=== PATIENT | male | born 1970 | race African-American/Black ===

== ENCOUNTER 2016-08-02 05:04 | Emergency (ER) | payer OTHER ==
[~2016-08-02] VITALS: Ht 193 cm; Wt 159.0 kg
[~2016-08-02 05:04] MED LIST: AMLO5TAB22 PO; LISI-363 PO
[2016-08-02 05:06] VITALS: BP 183/116; PULSE 84; RESP 20; TEMP 97.6; O2SAT 98
[2016-08-02] MEDS ORDERED: PROCHLORPERAZINE INJ 10 MG/2 ML VIAL IVP ONE (05:30)
[2016-08-02] MEDS ORDERED: SODIUM CHLORIDE 0.9% FLUSH 10 ML FLUSH IVF PRN (05:30)
[2016-08-02] MEDS ORDERED: diphenhydrAMINE HCL 50 MG/ML VIAL IVP ONE (05:30)
[2016-08-02 05:44] VITALS: RESP 18
[2016-08-02] MEDS ORDERED: AMLO5TAB2 PO (06:00)
[2016-08-02] MEDS ORDERED: LISI-515 PO (06:00)
--- NOTE | 2016-08-02 06:01 | PD ---
HPI Chief Complaint: Headache Time Seen by Provider: 05:28 Travel History International Travel<30 days: No Contact w/Intl Traveler<30days: No Traveled to known affect area: No History of Present Illness HPI 45-year-old male arrives with headache for about 1 day. Started at rest. Location is frontal. Has a throbbing quality. States that severe. He's had headaches in the past. It feels similar to stop the worst headache of his life. It started gradually. Motrin and ice pack were not very helpful. Photophobia is reported. He has been noncompliant with amlodipine and lisinopril for a few weeks. Nausea is reported. PFSH Past Medical History Heart Rhythm Problems: No Cardiac Catheterization: No Cardiovascular Problems: Yes (HTN) High Cholesterol: No Congestive Heart Failure: No Cerebrovascular Accident: No Diabetes: No Heparin Induced Thrombocytopen: No Hypertension: Yes Immunizations Current: Yes Myocardial Infarction: No Seizures: No Ulcer: No Tetanus Vaccination: Unknown Influenza Vaccination: No Past Surgical History Coronary Artery Bypass Graft: No Family History Family Myocardial Infarction: Yes Social History Alcohol Use: Yes (OCC) Tobacco Use: Yes (Cigars) Substance Use: No Allergies-Medications (Allergen,Severity, Reaction): Coded Allergies: No Known Allergies (Verified , 08/02/16) Reported Meds & Prescriptions Reported Meds & Active Scripts Active Lisinopril 20 Mg Tab 20 Mg PO DAILY Amlodipine (Amlodipine Besylate) 5 Mg Tab 5 Mg PO DAILY Review of Systems Except as stated in HPI: all other systems reviewed are Neg Physical Exam Narrative GENERAL: 67 yo M, WNWD, NAD SKIN: Warm and dry. HEAD: Atraumatic. Normocephalic. EYES: Pupils equal and round. No scleral icterus. No injection or drainage. ENT: No nasal bleeding or discharge. Mucous membranes pink and moist. NECK: Trachea midline. No JVD. Supple normal ROM. CARDIOVASCULAR: Regular rate and rhythm. RESPIRATORY: No accessory muscle use. Clear to auscultation. Breath sounds equal bilaterally. GASTROINTESTINAL: Abdomen soft, non-tender, nondistended. Hepatic and splenic margins not palpable. MUSCULOSKELETAL: Extremities without clubbing, cyanosis, or edema. No obvious deformities. NEUROLOGICAL: Awake and alert. No obvious cranial nerve deficits. Motor grossly within normal limits. Five out of 5 muscle strength in the arms and legs. Normal speech. PSYCHIATRIC: Appropriate mood and affect; insight and judgment normal. Data Data Last Documented VS Vital Signs Date Time Temp Pulse Resp B/P Pulse Ox O2 Delivery O2 Flow Rate FiO2 08/02/16 05:44 18 08/02/16 05:06 97.6 84 183/116 98 VS reviewed Orders Ecg Monitoring (08/02/16 05:28) Iv Access Insert/Monitor (08/02/16 05:28) Oximetry (08/02/16 05:28) Sodium Chloride 0.9% Flush (Ns Flush) (08/02/16 05:30) Prochlorperazine Inj (Compazine Inj) (08/02/16 05:30) Diphenhydramine Inj (Benadryl Inj) (08/02/16 05:30) Hydromorphone Pf Inj (Dilaudid Pf Inj) (08/02/16 06:30) [facility] Medical Decision Making Medical Screen Exam Complete: Yes Emergency Medical Condition: Yes Medical Record Reviewed: Yes Differential Diagnosis migraine, sah, meningitis, aneurysm Narrative Course At 630AM pt resting and feeling better. Reports persistent headache. Nausea resolved. 1mg hydromorphone ordered. The patient is resting comfortably and feels better, is alert and in no distress. The repeat examination is unremarkable and benign. The history, exam, diagnostic testing, and current condition do not suggest any significant pathology to warrant further testing, continued ED treatment, admission, or surgical evaluation at this point. The vital signs have been stable. The patient does not have uncontrollable pain, intractable vomiting, or other significant symptoms. The patient's condition is stable and appropriate for discharge. The patient will pursue further outpatient evaluation with a primary care physician or other designated or consulting physician as indicated in the discharge instructions. The patient expressed understanding and was agreeable with this plan. Diagnosis Primary Impression: Head ache Qualified Code: R51 - Nonintractable headache, unspecified chronicity pattern , unspecified headache type Additional Impression: Hypertension Qualified Code: I10 - Essential hypertension Referrals: [facility] 2 days Additional Instructions: You have a choice when it comes to health care, and we are glad that you chose [facility]. Hopefully, we have met your expectations on today's visit. You are welcome to return to [facility] at any time, as we are committed to meeting the health care needs of our community. Med/Other Pt SpecificInfo: Prescription(s) given Scripts Lisinopril 20 Mg Tab20 Mg PO DAILY #30 TAB Ref 1 Prov:Yordy Mcnally MD 08/02/16 Amlodipine 5 Mg Tab5 Mg PO DAILY #30 TAB Ref 1 Prov:Yordy Mcnally MD 08/02/16 Disposition: 01 DISCHARGE HOME Condition: Stable Yordy Mcnally MD August 02, 2016 06:01
[2016-08-02] MEDS ORDERED: HYDROmorphone HCL PF 1 MG/ML VIAL IV PUSH ONE (06:30)
[2016-08-02 06:55] VITALS: RESP 16
[2016-08-02 06:56] VITALS: BP 169/93
== END 2016-08-02 06:58 | disposition home or self-care (01) ==
LOC: NEPE 05:04
DX: R51 Headache (principal); I10 Essential (primary) hypertension; F17.290 Nicotine dependence, other tobacco product, uncomplicated
CPT/HCPCS: 96374; 96375; 99283; J0780; J1170; J1200

== ENCOUNTER 2017-09-25 01:15 | Inpatient (IN) ==
[2017-09-25] MEDS ORDERED: Morphine Inj 4 MG/ML Vial IV.PUSH ONE (01:49)
--- NOTE | 2017-09-25 02:08 | ED ---
HPI General Chief Complaint: Chest Pain Stated Complaint: Chest Pain Time Seen by Provider: 09/25/17 01:36 Source: patient and family Mode of arrival: ambulatory Limitations: no limitations History of Present Illness HPI narrative: Patient is a 46-year-old male he awoke from sleep severe substernal chest pain stabbing not relieved by any medication took Tums without relief. Pain is a 10 out of 10 he is writhing in pain in the stretcher he is not diaphoretic is not vomiting patient is a large habitus bodied male he was here a year ago similar symptoms says that he had a cath that was negative for any blockages he reports. He has hypertension he is hypertensive at triage 215 systolic blood pressure patient EKG is done he is sinus rhythm [address] elevations or depressions patient pain does not radiate to the arm it does not radiate to the back it is substernal severe stabbing continues in the ER without relief family drove to the ER they did not take EMS patient denies diabetes denies cardiac history but has had a cath for the similar symptoms a year ago Complete Quality Measures for STEMI Alert Patients Related Data Home Medications Medication Instructions Recorded Confirmed lisinopril 20 mg PO DAILY 09/25/17 09/25/17 Allergies Allergy/AdvReac Type Severity Reaction Status Date / Time No Known Allergies Allergy Unverified 09/25/17 01:22 Review of Systems Except as stated in HPI: all other systems reviewed are negative [facility] Medical History Medical History Hypertension (Acute) Social History Social History Substance History: No History of Abuse Second Hand Smoke Exposure: No Smoking Status: Current every day smoker Tobacco Type: Cigars How Often Do You Have a Drink Containing Alcohol: Monthly or less Recent Travel in [facility] within the Last 8 Weeks: No Recent Out of Country Travel within the Last 8 Weeks: No Immunization History Tetanus Immunization: Unsure Hx Influenza Vaccine This Season: No Exam Narrative Exam Narrative: GENERAL: Patient in moderate distress lying on the stretcher slightly arriving holding his chest ] SKIN: Focused skin assessment warm/dry. HEAD: Atraumatic. Normocephalic. EYES: Pupils equal and round. No scleral icterus. No injection or drainage. ENT: No nasal bleeding or discharge. Mucous membranes pink and moist. NECK: Trachea midline. No JVD. CARDIOVASCULAR: Regular rate and rhythm. No murmur appreciated. htn bp 215/ 99 RESPIRATORY: No accessory muscle use. Clear to auscultation. Breath sounds equal bilaterally. GASTROINTESTINAL: Abdomen soft, non-tender, nondistended. Hepatic and splenic margins not palpable. MUSCULOSKELETAL: No obvious deformities. No clubbing. No cyanosis. No edema. NEUROLOGICAL: Awake and alert. No obvious cranial nerve deficits. Motor grossly within normal limits. Normal speech. PSYCHIATRIC: Appropriate mood and affect; insight and judgment normal. Course Reevaluation(s) Reevaluation #1: Patient's mild improvement pain is reduced Nitropaste 1 inch as well as 2 of morphine and 162 of aspirin patient's BP comes down to 151 systolic he is admitted to chest pain center for serial troponins serial EKGs is troponin is negative EKG is normal sinus rhythm at a rate of 65 admitted to the wet wheeler covering the chest pain center still troponins serial EKG stress test in the a.m. Initial Documented Vital Signs Temperature 97.5 F L 09/25/17 01:19 Pulse Rate 72 09/25/17 01:19 Respiratory Rate 16 09/25/17 01:19 Blood Pressure 215/118 H 09/25/17 01:19 Pulse Oximetry 98 09/25/17 01:19 Last Documented Vital Signs Temperature 97.5 F L 09/25/17 01:19 Pulse Rate 65 09/25/17 03:59 Respiratory Rate 16 09/25/17 03:59 Blood Pressure 151/96 H 09/25/17 03:59 Pulse Oximetry 99 09/25/17 04:03 Medical Decision Making Lab Data Result diagrams: 09/25/17 02:00 09/25/17 02:00 Lab Results 09/25/17 09/25/17 09/25/17 Range/Units 02:00 02:00 02:00 WBC 9.4 (4.0-11.0) th/mm3 RBC 5.25 (4.50-5.90) mil/mm3 Hgb 13.3 (13.0-17.0) gm/dL Hct 40.8 (39.0-51.0) % MCV 77.8 L (80.0-100.0) fL MCH 25.3 L (27.0-34.0) pg MCHC 32.5 (32.0-36.0) % RDW 16.1 (11.6-17.2) % Plt Count 218 (150-450) th/mm3 MPV 8.6 (7.0-11.0) fL Neut % (Auto) 50.8 (16.0-70.0) % Lymph % (Auto) 38.4 (9.0-44.0) % [place] % (Auto) 7.6 (0.0-8.0) % Eos % (Auto) 2.9 (0.0-4.0) % Baso % (Auto) 0.3 (0.0-2.0) % Neut # (Auto) 4.8 (1.8-7.7) th/mm3 Lymph # (Auto) 3.6 (1.0-4.8) th/mm3 [place] # (Auto) 0.7 (0.0-0.9) th/mm3 Eos # (Auto) 0.3 (0.0-0.4) th/mm3 Baso # (Auto) 0.0 (0.0-0.2) th/mm3 WBC Differential . Differential Comment Auto diff final PT 10.5 (9.8-11.6) sec INR 1.0 Ratio APTT 27.6 (24.3-30.1) sec Sodium 144 (136-145) meq/L Potassium 3.6 (3.5-5.1) meq/L Chloride 110 H (98-107) meq/L Carbon Dioxide 26.5 (21.0-32.0) meq/L Anion Gap 8 (5-15) meq/L BUN 17 (7-18) mg/dL Creatinine 1.03 (0.60-1.30) mg/dL Estimated GFR Greater than 89 (>89) mL/min Random Glucose 134 H (74-106) mg/dL Calcium 8.5 (8.5-10.1) mg/dL Magnesium 2.1 (1.5-2.5) mg/dL Total Creatine Kinase 534 H (39-308) U/L CK-MB (CK-2) 3.3 (0.5-3.6) ng/mL CK-MB (CK-2) % 0.6 (0.0-4.0) % Troponin I Less than 0.02 L (0.02-0.05) ng/mL Imaging Data Radiologist's impression: ITS Impressions Chest X-Ray 09/25/17 01:49 CONCLUSION: No acute cardiopulmonary disease. ECG Data EKG Prior to Arrival: No Attestation: I personally reviewed and interpreted this ECG as follows: Prior ECG tracings: not available for review Discharge Plan Discharge Disposition Patient Disposition: 30 Still Patient Physicians Team ED Provider: Chinmay Michele Primary Care Provider: Primary Care Luz Maria Dwyer Attending Provider: Thomas Lindo Status ED Status: Admitted Observation Patient
[2017-09-25 02:29] LABS: Baso % (Auto) 0.3 % (0.0-2.0); Eos # (Auto) 0.3 th/mm3 (0.0-0.4); Eos % (Auto) 2.9 % (0.0-4.0); Hematocrit 40.8 % (39.0-51.0); Hemoglobin 13.3 gm/dL (13.0-17.0); Lymph # (Auto) 3.6 th/mm3 (1.0-4.8); Lymph % (Auto) 38.4 % (9.0-44.0); Mean Corpuscular HGB Conc 32.5 % (32.0-36.0); Mean Corpuscular Hemoglobin 25.3 pg (27.0-34.0); Mean Corpuscular Volume 77.8 fL (80.0-100.0); Mean Platelet Volume 8.6 fL (7.0-11.0); Mono # (Auto) 0.7 th/mm3 (0.0-0.9); Mono % (Auto) 7.6 % (0.0-8.0); Neut # (Auto) 4.8 th/mm3 (1.8-7.7); Neut % (Auto) 50.8 % (16.0-70.0); Platelet Count 218 th/mm3 (150-450); Red Blood Count 5.25 mil/mm3 (4.50-5.90); Red Cell Distribution Width 16.1 % (11.6-17.2); White Blood Count 9.4 th/mm3 (4.0-11.0)
--- NOTE | 2017-09-25 02:29 | XR ---
EXAM DATE: 09/25/2017 2:22 AM EDT AGE/SEX: 46 years / Male INDICATIONS: Substernal chest pain. CLINICAL DATA: This is the patient's initial encounter. Patient reports that signs and symptoms have been present for 1 day and indicates a pain score of 6/10. MEDICAL/SURGICAL HISTORY: None. None. COMPARISON: [facility] [place], CHEST SINGLE AP, 06/26/2015. . FINDINGS: PA and lateral views of the chest demonstrate the lungs to be symmetrically aerated without evidence of mass, infiltrate or effusion. The cardiomediastinal contours are unremarkable. Osseous structures are intact. CONCLUSION: No acute cardiopulmonary disease. Electronically signed by: Rai Pereira MD 09/25/2017 2:27 AM EDT
[2017-09-25 02:37] LABS: Activated Partial Thrombo Time 27.6 sec (24.3-30.1); Prothrombin Time 10.5 sec (9.8-11.6)
[2017-09-25 02:44] LABS: Anion Gap 8 meq/L (5-15); Blood Urea Nitrogen 17 mg/dL (7-18); Calcium 8.5 mg/dL (8.5-10.1); Carbon Dioxide 26.5 meq/L (21.0-32.0); Chloride 110 meq/L (98-107); Glomerular Filtration Rate Greater Than 89 mL/min (>89); Glucose,Random 134 mg/dL (74-106); Magnesium 2.1 mg/dL (1.5-2.5); Potassium 3.6 meq/L (3.5-5.1); Sodium 144 meq/L (136-145)
[2017-09-25 02:48] LABS: Creatine Kinase 534 U/L (39-308)
[2017-09-25 03:00] LABS: CKMB Percent 0.6 % (0.0-4.0); Creatine Kinase MB 3.3 ng/mL (0.5-3.6)
[2017-09-25 06:13] LABS: Troponin I 1.8 ng/mL (0.02-0.05)
[2017-09-25] MEDS ORDERED: Heparin 2,000 UNITS/2 ML Vial (for IV use) IV.FLUSH ONE (06:17)
[2017-09-25] MEDS ORDERED: Heparin Drip 25,000 UNIT/250 ML BAG IV.CONT PRN (06:18)
[2017-09-25 06:25] LABS: CKMB Percent 2.4 % (0.0-4.0); Creatine Kinase MB 12.7 ng/mL (0.5-3.6)
[2017-09-25] MEDS ORDERED: Acetaminophen 325 MG Tablet PO PRN (06:48)
[2017-09-25] MEDS ORDERED: Bisacodyl 10 MG Supp RECTAL PRN (06:48)
[2017-09-25] MEDS ORDERED: Temazepam 15 MG Capsule PO PRN (06:48)
[2017-09-25] MEDS ORDERED: Morphine Inj 4 MG/ML Vial IV.PUSH PRN (06:51)
[2017-09-25] MEDS ORDERED: Sod Chloride 0.9% Inj 1,000 ML IV.CONT SCH (07:00)
[2017-09-25] MEDS ORDERED: Heparin 10,000 UNITS/10 ML Vial (for IV use) ONE ×2 (07:24→10:38)
[2017-09-25] MEDS ORDERED: Metoprolol Tartrate 25 MG Tablet PO SCH (09:00)
[2017-09-25] MEDS ORDERED: Senna/Docusate Sodium 8.6/50 MG Tablet PO SCH (09:00)
--- NOTE | 2017-09-25 09:12 | MB ---
cc: Flash Allison MD DATE: 09/25/2017 DATE OF CONSULTATION: 09/25/2017 INDICATION: Non-ST elevation myocardial infarction. HISTORY OF PRESENT ILLNESS: This is a 46-year-old gentleman who has a history of tobacco abuse and hypertension, who presents with acute onset of substernal chest pain. The patient states that last night he awoke with sudden onset of substernal chest pain. He tried antacids without any relief. He described it as a 10/10 pain associated with minimal diaphoresis and shortness of breath. He was brought in to the emergency department where electrocardiogram showed no significant ischemic changes. Symptoms resolved in the ER prior to EKG. His cardiac biomarkers are mildly elevated. We are consulted for further recommendations. PAST MEDICAL HISTORY: Hypertension. SOCIAL HISTORY: He is a current cigar smoker. Occasional alcohol use. FAMILY HISTORY: He denies family history of early coronary disease or sudden cardiac . REVIEW OF SYSTEMS: A 12-point review of system was performed, negative unless otherwise noted in History Of Present Illness. PHYSICAL EXAMINATION: VITAL SIGNS: Temperature 97, pulse 72, blood pressure is 151/96 mmHg. Upon initial arrival was it was 215/118 mmHg. GENERAL: Alert and oriented x3, in no acute distress. HEENT: Shows pupils are reactive to light and accommodation. Extraocular movements are intact. NECK: No elevation of jugular venous distention. No thyromegaly. No lymphadenopathy. No carotid bruits. LUNGS: Clear to auscultation bilaterally. CARDIOVASCULAR: Regular rate and rhythm without murmurs, rubs or gallops. ABDOMEN: Nontender, nondistended, good bowel sounds. No hepatosplenomegaly. EXTREMITIES: No clubbing, cyanosis or edema. Good peripheral pulses. NEUROLOGIC: Cranial nerves intact. Motor and sensory grossly intact. LABORATORY DATA: WBC 9.4, hemoglobin is 13.3, platelet count is 218. Sodium 144, potassium 3.6, BUN 17, creatinine is 1.03. Troponin was initially 0.02 but is now elevated at 1.80. Electrocardiogram shows sinus rhythm, some early repolarization, but no significant ST abnormalities and no nonspecific T-wave abnormalities. Looking back at his EKG from 2016 actually shows T-wave inversions to the anterolateral precordial leads, which are now pseudo-normalized. ASSESSMENT: 1. Non-ST elevation myocardial infarction. 2. Hypertension. PLAN: Given the suggestive symptoms, in addition to elevated cardiac biomarkers and a change in EKG, we will proceed directly with cardiac catheterization. Risks, benefits, and alternatives discussed with the patient. The patient understood and consented to proceed. Echocardiogram has been performed. The patient is on heparin drip. We will continue with guideline-directed medical therapy. Flash Allison MD SAROJ/SB , 08:48 AM , 09:11 AM
--- NOTE | 2017-09-25 10:01 | P.HPIM ---
History of Present Illness Primary Care Physician: No Primary Care Physician Chief Complaint: Chest pain History of Present Illness: 46-year-old -Mac[place] male with history of hypertension presents to emergency room with complaints of substernal chest pain which he rates as a throbbing sharp pain intensity of a 10 out of 10. He states the pain woke him up about midnight with no significant relief therefore came to the emergency room for further evaluation. He reports associated nausea with no radiation. He denies any shortness of breath associated with this pain. At this time, after Nitropaste has been started he is complaining of frontal headaches and requesting pain medication. He states that his chest pain has improved since coming to the emergency room. Inpatient Certification: I certify that the inpatient services were ordered in accordance with Medicare regulations governing the order. This includes certification that hospital inpatient services are reasonable and necessary and in the case of services not specified as inpatient-only under 42 CFR 419.22(n), that they are appropriately provided as inpatient services in accordance to with the 2-midnight benchmark under 43 CFR 412.3(e) Estimated Total Length of Stay (Days): 2 Plans for Post Hospital Care: Home Review of Systems All other systems reviewed negative except as stated in HPI PMFSH - History History Provided By: Patient - Medical / Surgical Hx Neg / Unobtainable Surgical History: No Previous Surgery - Medical History Medical History: Medical History (Last Reviewed 09/25/17 @ 09:55 by Genesis Gill MD) Hypertension - Family History Family History: Family History (Last Updated 09/25/17 @ 09:56 by Genesis Gill MD) Mother Family history of acute myocardial infarction - Tobacco History Second Hand Smoke Exposure: No Tobacco Use In Past 30 Days: Yes Smoking Status: Current every day smoker Tobacco Type: Cigars - Alcohol History How Often Do You Have a Drink Containing Alcohol: Monthly or less - Substance Use History Substance History: No History of Abuse - Travel History Recent Travel in the [place] Within the Last 8 Weeks: No Recent Travel Out of the Country Within the Last 8 Weeks: No - Immunization History Tetanus Immunization: Unsure Hx Influenza Vaccine This Season: No Medications and Allergies Active Medications: Active Medications Acetaminophen (Tylenol) 650 mg PO Q4H PRN PRN Reason: Temp > 100.4 Last Admin: 09/25/17 07:33 Dose: 650 mg Al Hydroxide/Mg Hydroxide (Milk Of Magnesia Liq) 30 ml PO Q12H PRN PRN Reason: Mild Constipation Bisacodyl (Dulcolax Supp) 10 mg RECTAL DAILY PRN PRN Reason: SEVERE CONSITIPATION Heparin Sodium/Dextrose (Heparin/D5w 25,000 U/250 Ml) 25,000 unit in 250 mls @ 0 mls/hr IV.CONT TITRATE PRN; Protocol PRN Reason: Per Protocol Last Admin: 09/25/17 07:34 Dose: 1,000 units/hr, 10 mls/hr Sodium Chloride (Ns Inj) 1,000 mls @ 100 mls/hr IV.CONT .Q10H NAZIA Lactulose (Lactulose Liq) 30 ml PO DAILY PRN PRN Reason: SEVERE CONSITIPATION Metoclopramide HCl (Reglan Inj) 5 mg IV.PUSH Q6HR PRN; Protocol PRN Reason: NAUSEA OR VOMITING Metoprolol Tartrate (Lopressor) 25 mg PO BID NAZIA Morphine Sulfate (Morphine Inj) 2 mg IV.PUSH Q4H PRN PRN Reason: PAIN 6-10 Nitroglycerin (Nitro-Bid 2% Oint) 0.5 inch TOPICAL Q6HR PRN PRN Reason: CHEST PAIN Last Admin: 09/25/17 07:32 Dose: 0.5 inch Pravastatin Sodium (Pravachol) 40 mg PO DAILY [facility] Senna/Docusate Sodium (Malinda-Colace) 1 tab PO BID [facility] Sennosides (Senokot) 17.2 mg PO Q12H PRN PRN Reason: Moderate Constipation Sodium Chloride (Ns Flush) 2 ml IV.FLUSH UNSCH PRN PRN Reason: FLUSH AFTER USING IV ACCESS Sodium Chloride (Ns Flush) 2 ml IV.FLUSH BID NAZIA Sodium Chloride (Ns Flush) 2 ml IV.FLUSH PRN PRN PRN Reason: FLUSH AFTER USING IV ACCESS Temazepam (Restoril) 15 mg PO HS PRN PRN Reason: INSOMNIA Allergies Allergy/AdvReac Type Severity Reaction Status Date / Time No Known Allergies Allergy Unverified 09/25/17 01:22 Home Medications Medication Instructions Recorded Confirmed Type lisinopril 20 mg PO DAILY 09/25/17 09/25/17 History Exam Vital signs: Vital Signs 09/25/17 01:19 09/25/17 02:02 09/25/17 02:04 Temperature 97.5 F L Pulse Rate 72 74 Respiratory Rate 16 Blood Pressure 215/118 H Pulse Oximetry 98 98 09/25/17 02:05 09/25/17 03:59 09/25/17 04:00 Temperature Pulse Rate 65 Respiratory Rate 16 Blood Pressure 151/96 H Pulse Oximetry 95 99 99 09/25/17 04:03 09/25/17 06:45 09/25/17 09:02 Temperature Pulse Rate 64 72 Respiratory Rate 16 18 Blood Pressure 157/90 H 167/88 H Pulse Oximetry 99 100 Intake & Output 09/24/17 09/25/17 09/25/17 18:59 06:59 18:59 Weight 154.221 kg Narrative: GENERAL: Well-nourished well-developed -Macanese male in no acute distress SKIN: Warm and dry. HEAD: Atraumatic. Normocephalic. EYES: Pupils equal and round. No scleral icterus. No injection or drainage. ENT: No nasal bleeding or discharge. Mucous membranes pink and moist. NECK: Trachea midline. No JVD. CARDIOVASCULAR: Regular rate and rhythm. Chest wall: Chest pain not reproducible on palpation of the chest wall RESPIRATORY: No accessory muscle use. Clear to auscultation. Breath sounds equal bilaterally. GASTROINTESTINAL: Abdomen soft, non-tender, nondistended. Hepatic and splenic margins not palpable. Normoactive bowel sounds MUSCULOSKELETAL: Extremities without clubbing, cyanosis, or edema. No obvious deformities. NEUROLOGICAL: Awake and alert to person place time and situation. No obvious cranial nerve deficits. Motor grossly within normal limits. Five out of 5 muscle strength in the arms and legs. Normal speech. PSYCHIATRIC: Appropriate mood and affect; insight and judgment normal. Results - Labs CBC & Chem 7: 09/25/17 02:00 09/25/17 02:00 Labs: Short CBC 09/25/17 Range/Units 02:00 WBC 9.4 (4.0-11.0) th/mm3 Hgb 13.3 (13.0-17.0) gm/dL Hct 40.8 (39.0-51.0) % Plt Count 218 (150-450) th/mm3 BMP 09/25/17 02:00 Sodium 144 Potassium 3.6 Chloride 110 H Carbon Dioxide 26.5 BUN 17 Creatinine 1.03 Calcium 8.5 Cardiac Enzymes 09/25/17 09/25/17 Range/Units 02:00 05:10 Total Creatine Kinase 534 H 521 H (39-308) U/L CK-MB (CK-2) 3.3 12.7 H (0.5-3.6) ng/mL Troponin I Less than 0.02 L 1.80 H* (0.02-0.05) ng/mL - Imaging Impressions Chest X-Ray 09/25/17 01:49 CONCLUSION: No acute cardiopulmonary disease. - ECG Attestation: I personally reviewed and interpreted this ECG as follows: Prior ECG tracings: not available for review Interpretation: EKG with normal sinus rhythm with heart rate 65 with no acute ischemic changes. Caprini VTE Risk Assessment Caprini VTE Risk Assessment: Moderate/High Risk (score >= 2) Caprini Risk Assessment Model: Point Value = 1 Point Value = 2 Point Value = 3 Point Value = 5 Age 41-60 Minor surgery BMI > 25 kg/m2 Swollen legs Varicose veins or History of unexplained or recurrent spontaneous Oral contraceptives or hormone replacement Sepsis (< 1 month) Serious lung disease, including pneumonia (< 1 month) Abnormal pulmonary function Acute myocardial infarction Congestive heart failure (< 1 month) History of inflammatory bowel disease Medical patient at bed rest Age 61-74 Arthroscopic surgery Major open surgery (> 45 min) Laparoscopic surgery (> 45 min) Malignancy Confined to bed (> 72 hours) Immobilizing plaster cast Central venous access Age >= 75 History of VTE Family history of VTE Factor V Leiden Prothrombin [id number] Lupus anticoagulant Anticardiolipin antibodies Elevated serum homocysteine Heparin-induced thrombocytopenia Other congenital or acquired thrombophilia Stroke (< 1 month) Elective arthroplasty Hip, pelvis, or leg fracture Acute spinal cord injury (< 1 month) Prophylaxis Regimen: Total Risk Factor Score Risk Level Prophylaxis Regimen 0-1 Low Early ambulation 2 Moderate Order ONE of the following: *Sequential Compression Device (SCD) *Heparin 5000 units SQ BID 3-4 Higher Order ONE of the following medications: *Heparin 5000 units SQ TID *Enoxaparin/Lovenox 40 mg SQ daily (WT < 150 kg, CrCl > 30 mL/min) *Enoxaparin/Lovenox 30 mg SQ daily (WT < 150 kg, CrCl > 10-29 mL/min) *Enoxaparin/Lovenox 30 mg SQ BID (WT < 150 kg, CrCl > 30 mL/min) AND/OR *Sequential Compression Device (SCD) 5 or more Highest Order ONE of the following medications: *Heparin 5000 units SQ TID (Preferred with Epidurals) *Enoxaparin/Lovenox 40 mg SQ daily (WT < 150 kg, CrCl > 30 mL/min) *Enoxaparin/Lovenox 30 mg SQ daily (WT < 150 kg, CrCl > 10-29 mL/min) *Enoxaparin/Lovenox 30 mg SQ BID (WT < 150 kg, CrCl > 30 mL/min) AND *Sequential Compression Device (SCD) Assessment and Plan - Plan 1. Non-ST elevation myocardial infarctionpatient had elevation in troponin I after the first set of negative enzymes. At this time continue with aspirin, beta charlie, heparin, and Nitropaste. Cardiology Dr. Allison has been consulted and recommended a cardiac catheterization this morning. 2. Hypertensive urgencypatient with a history of uncontrolled hypertension continue with enalapril amlodipine and adjust dosing as appropriate. Vasotec IV as needed for uncontrolled blood pressure. 3. Tobacco use. Cessation counseling provided 4. DVT prophylaxisheparin Addendum Cardiac cath with Dr. Allison - normal coronaries Discharge patient to home Condition on discharge: Improved heart healthy Diet as tolerated Ad Galina activity Rx written: asa lisinopril 40 mg PO daily norvasc 5 mg PO daily Pravastatin 40 mg PO QHS Follow-up with primary care physician
[2017-09-25] MEDS ORDERED: Heparin/NS PF Inj 1,000 ML ONE (10:37)
[2017-09-25] MEDS ORDERED: fentaNYL Citrate Inj 100 MCG/2 ML Ampul ONE (10:38)
[2017-09-25] MEDS ORDERED: Lidocaine PF 1% Inj 30 ML Vial ONE (10:44)
[2017-09-25] MEDS ORDERED: Lisinopril 20 MG Tablet PO SCH (11:00)
[2017-09-25 11:11] LABS: INR 1.1 Ratio; Prothrombin Time 10.7 sec (9.8-11.6)
--- NOTE | 2017-09-25 11:46 | CATHPROC ---
[facility] HIS Report Study Information Study Number Admission Scheduled Start Study Start [id number] Sep 25 2017 6:48AM 09/25/2017 Sep 25 2017 10:17AM [place] [facility] Cardiac Catheterization Admit Source Facility Department Emergency department [facility] - [facility] Tender Physician and Clinical Staff Initial Flash Pop Traffic Routing Engineer Cece Gurrola,RN Recorder Yumiko Crawford ,RT(R) Scrub Cecilia Mccray,RT(R) (BS) Procedures Performed Procedure Location (Site) Vessel Name Angiogram LV LV Ventricle Coronary Angiograms LCA Left Coronary Coronary Angiograms RCA Right Coronary L Heart Cath Wire insertion Radial (right) Radial Art. Equipment Time Colliery Clerk Description Size Mfg Part Number Used/Scraped TRANSDUCER, TRUWAVE [id number] 10:19 KuponGid BAGLEY * Used W/STOCKCOCK *[id number] 10:19 Snap Trends BLANKET,WARM AIR CCL * Used *[id number] 10:19 Snap Trends PACK, CCL CUSTOM * Used *[id number] 10:19 Snap Trends SUPPORT, ARTERIAL ADULT 86079 *[id number] Used [id number] 10:19 powervault PACER PEN, SKIN DUAL W/ RULER * Used *[id number] 11:10 DryadTRONIC JL 3.5 DXTERITY CATHETER FR 5 Used *[id number] 10:53 MEDTRONIC JR 5.0 DXTERITY CATHETER fr 5 [id number] Used PIG ANG 145 DXTERITY [id number] 11:18 MEDTRONIC FR 5 Used CATHETER *[id number] BAND, RADIAL COMPRESSION TR [id number] 11:26 1bib 29CM Used LARGE 29 *[id number] SHEATH, FR6 RADIAL PRELUDE 10:19 1bib FR 6 [id number] Used EASE 11CM [id number] 10:19 1bib WIRE, EXCHANGE 260CM 3MMJ 260CM Used *[id number] 10:19 NAMIC MANIFOLD, 4 PORT * Used *[id number] TUBING, PRESSURE INJECTION [id number] 11:20 NAMIC 72" Used 72" *[id number] 10:19 NYCOMED OMNIPAQUE, 350 MG, 150ML 150ML [id number] Used Equipment Model, Serial, Lot Number and Expiration Data Description Model Number Serial Number Lot Number Expiration Date JR 5.0 DXTERITY CATHETER [id number] 11-06-2019 PIG ANG 145 DXTERITY CATHETER [id number] 05-29-2019 History: Current Medications Medication Dosage/Unit Route Frequency Last Date/Time Taken LISINOPRIL History: Allergies Allergy Reaction No Known Allergies History: Risk Factors Family History of Hypertension Dyslipidemia Previous DC Previous Heart Failure Premature CAD Yes No No No No Prior Valve Prior PCI Prior CABG Surgery No No No Cerebrovascular Peripheral Artery Chronic Lung On Dialysis Diabetes Disease Disease Disease No No No No No History: Symptoms/Diagnosis Selection Items Chest pain History: Stress Tests Stress or Imaging Studies Performed No History: Other Disease Selection Items HTN History: Other Current Smoker Method Packs a Day Years Used Pack Years Yes Cigars 3 30 90 Labs Hgb (g/dl) Hct (%) WBC (l/cumm) Platelets (thousands) 11.60-17.00 35.00-51.00 4.00-11.00 150.00-450.00 13.3 40.8 9.4 218 Glucose (mg/dl) BUN (mg/dl) Creatinine (mg/dl) BUN:Creatinine (1:x) 74.00-106.00 7.00-18.00 0.50-1.30 10.00-20.00 134 17 1.0 17 Na (meq/l) K (meq/l) 136.00-145.00 3.50-5.10 144 3.6 INR (PTT:PT) 0.90-1.10 1 Troponin I (ng/ml) CPK (u/l) CPK-MB (ng/ML) 0.02-0.05 26.00-308.00 0.50-3.60 1.8 521 12.7 Medication Medication Total Dose (Bolus/Oral) Medication Total Dosage/Unit 1% XYLOCAINE 5 mL FENTANYL 75 mcg HEPARIN 5000 units NTG (IC) 200 mcg OXYGEN 2 l/min VERSED 3 mg ZOFRAN 4 mg Medications (Bolus/Oral) Medication Time Given Dosage/Unit Administered By Camryn BOSTON 09/25/2017 10:40:02 AM 4 mg Cece Gurrola 4 mg ZOFRAN given in lab by Cece Gurrola, RN in Right Antecubital via Central IV. Ordered by Flash Allison. VERSED 09/25/2017 10:50:08 AM 2 mg Cece Gurrola 2 mg VERSED given in lab by Cece Gurrola RN in Right Antecubital via Peripheral IV. Ordered by Flash Duncan. FENTANYL 09/25/2017 10:51:30 AM 50 mcg Cece Gurrola 50 mcg FENTANYL given in lab by Cece Gurrola RN in Right Antecubital via Peripheral IV. Ordered Flash Montano. OXYGEN 09/25/2017 10:54:50 AM 2 l/min Cece Gurrola 2 l/min OXYGEN given in lab by Cece Gurrola RN via Nasal. Ordered by Flash Allison. 1% XYLOCAINE 09/25/2017 11:02:43 AM 5 mL Flash Allison 5 mL 1% XYLOCAINE given in lab by Flash Allison in Right Radial via Subcutaneous. Ordered by Flash Allison. VERSED 09/25/2017 11:05:06 AM 1 mg Cece Gurrola 1 mg VERSED given in lab by Cece Gurrola RN in Right Antecubital via Peripheral IV. Ordered by Flash Duncan. FENTANYL 09/25/2017 11:06:11 AM 25 mcg Cece Gurrola 25 mcg FENTANYL given in lab by Cece Gurrola RN in Right Antecubital via Peripheral IV. Ordered Flash Montano. NTG (IC) 09/25/2017 11:08:29 AM 200 mcg Flash Allison 200 mcg NTG (IC) given in lab by Flash Allison via Intra-coronary. Ordered by Flash Allison. HEPARIN 09/25/2017 11:08:37 AM 5000 units Cecilia Mccray 5000 units HEPARIN given in lab by Cecilia Mccray RT(R) (BS) via Peripheral IV. Ordered by Flash Allison. Medication (Drip) Medication Time Given Dosage/Unit Concentration/Unit Diluent (ml) Solution IV Solutions 09/25/2017 10:36:31 AM 0 mL (IV) 500 NaCl .9 Patient arrived on IV Solutions in Right Antecubital via Peripheral IV. Pump/Drip Flow = 20 ml/hr usi ng NaCl .9. Ordered by Flash Allison. Initial Case Assessment Cardiovascular HR Rhythm NIBP Chest Pain 63 nsr 161/98 0 Edema Present Skin color Skin None Normal Warm Dry Circulatory - Right Pulses Dorsalis Pedis Femoral Radial 2 2 2 Scale (0,1,2,3,4,d) Scale (0,1,2,3,4,d) Neurological State Oriented to time-place- Alert Moves all extremities person Respiration - General Respiration Rate SpO2 (%) (B/min) 15 99 Final Case Assessment Cardiovascular HR Rhythm NIBP Chest Pain 63 nsr 161/98 0 Edema Present Skin color Skin None Normal Warm Dry Circulatory - Right Pulses Dorsalis Pedis Femoral Radial 2 2 2 Scale (0,1,2,3,4,d) Scale (0,1,2,3,4,d) Neurological State Oriented to time-place- Alert Moves all extremities person Respiration - General Respiration Rate SpO2 (%) (B/min) 15 99 Chronological Log Time Study Chronological Log 10:36:19 Patient arrived via Bed. 10:36:20 Patient Name, D.O.B, / Armband Verified By R.N. 10:36:21 Consent signed by the physician and the patient and verified by the Cl[facility] Tender staff. 10:36:21 Pre-op and post- op instructions given; patient acknowledges understanding of instructions. 10:36:22 Verbal Stimulation=2 Physical Stimulation=2 Airway=2 Respiration=2 TOTAL=8. (0=absent, 1=li mited, 2=present) 10:36:23 Presedation assessment performed by Cloth Ble[facility] Range Back Tender RN. 10:36:23 Allens test performed on the right radial and ulnar artery. POSITIVE. 10:36:27 Immediate Presedation assesment performed by physician. 10:36:27 Patient has been NPO for More than 6Hrs. 10:36:28 Skin Breakdown- none per patient 10:36:29 Patient Warmer Placed on the Table. 10:36:29 Maria E Prominences Protected 10:36:30 A # 20 IV was noted in the Antecubital (right). Grade = 0 Patient arrived on IV Solutions in Right Antecubital via Peripheral IV. Pump/Drip Flow = 20 ml/ hr using NaCl .9. Ordered 10:36:31 by Flash Allison. 10:36:31 History and physical on the chart or being dictated. 10:40:02 4 mg ZOFRAN given in lab by Cece Gurrola, RN in Right Antecubital via Central IV. Ordere d by Flash Allison. Vitals capture started with the following parameters, Patient=Adult, Interval=5 min, Initial Pr evflhx=979 mmHg, 10:41:32 Deflation Rate=5 mmHg, Cuff placed on Right Arm 10:42:51 HR=68 bpm, IZIV=299/98 mmhg, SpO2=97.0 %, Pain=0, Uzair=10, Kearns=2 Assessment: Initial Case, HR=63 BPM, Rhythm=nsr, MZBZ=242/98 mmhg, Chest Pain=0, Edema=None, Co zach=Normal, Skin = Warm, Dry 10:45:39 Right Pulses: Jerry Ped=2, Femoral=2, Radial=2 Neurological: State=Alert, Ox3, ADAMS Respiration: Resp=15 B/min, SpO2=99 % 10:45:58 Reference ECG taken 10:46:22 Right Radial and right groin prepped with 2% chlorhexidine, and draped after a 3 min. waiti ng time. 10:47:15 HR=63 bpm, IODE=089/115 mmhg, SpO2=97.0 %, Resp=12 B/min 10:50:08 2 mg VERSED given in lab by Cece Gurrola, RN in Right Antecubital via Peripheral IV. Ord ered by Flash Allison. 10:51:02 paged 50 mcg FENTANYL given in lab by Cece Gurrola, HANANE in Right Antecubital via Peripheral IV. Ord ered by Keegan 10:51:30 Flash. 10:52:16 HR=80 bpm, SYAP=542/100 mmhg, SpO2=88.0 %, Resp=16 B/min 10:52:21 Pressure channel 1 zeroed. 10:54:50 2 l/min OXYGEN given in lab by Cece Gurrola, RN via Nasal. Ordered by Flash Allison. 10:56:40 MD arrived. 10:57:17 HR=79 bpm, YEIO=758/102 mmhg, SpO2=93.0 %, Resp=17 B/min 11:02:16 HR=75 bpm, DECR=626/95 mmhg, SpO2=95.0 %, Resp=15 B/min 11:02:41 Case Start 11:02:43 5 mL 1% XYLOCAINE given in lab by Flash Allison in Right Radial via Subcutaneous. Ordered by Flash Allison. 11:05:06 1 mg VERSED given in lab by Cece Gurrola, HANANE in Right Antecubital via Peripheral IV. Ord ered by Flash Allison. 25 mcg FENTANYL given in lab by Cece Gurrola RN in Right Antecubital via Peripheral IV. Ord ered by Keegan, 1106:11 Flash. 11:07:12 Access site was Right Radial Artery. 11:07:19 HR=76 bpm, JCKL=165/101 mmhg, SpO2=93.0 %, Resp=16 B/min 11:07:21 A wire was inserted via Radial (right). A SHEATH, FR6 RADIAL PRELUDE EASE 11CM FR 6 was advanced into the Radial (right) using the Perc utaneous :: technique. 11:08:29 200 mcg NTG (IC) given in lab by Flash Allison via Intra-coronary. Ordered by Aleksandra Allison en. 11:08:37 5000 units HEPARIN given in lab by Cecilia Mccray, (R) (BS) via Peripheral IV. Ordered by Flash Allison. A JR 5.0 DXTERITY CATHETER fr 5 was advanced over a wire. OMNIPAQUE, 350 MG, 150ML 150ML was us ed for 11:09:59 injections. 11:12:21 HR=79 bpm, EBQD=649/85 mmhg, SpO2=95.0 %, Resp=16 B/min 11:12:56 The RCA was injected and visualized at various angles. OMNIPAQUE, 350 MG, 150ML 150ML used . After removing the current catheter a JL 3.5 DXTERITY CATHETER FR 5 was advanced over a WIRE, E XCHANGE 260CM 11:14:42 3MMJ 260CM. Recorded Pressure: Ao, HR=80, Condition=Condition 1 11:15:26 (Aorta) Ao 147/101/123 11:16:51 The LCA was injected and visualized at various angles. OMNIPAQUE, 350 MG, 150ML 150ML used . 11:17:18 HR=80 bpm, MFVY=853/105 mmhg, SpO2=95.0 %, Resp=15 B/min After removing the current catheter a PIG ANG 145 DXTERITY CATHETER FR 5 was advanced over a WI RE, EXCHANGE 11:19:03 260CM 3MMJ 260CM. Recorded Pressure: LV, HR=72, Condition=Condition 1 11:20:27 (Left Ventricle) LV 174/19/36 11:20:44 The LV was injected at 10 cc/sec for a total of 30. OMNIPAQUE, 350 MG, 150ML 150ML used. 11:22:17 HR=79 bpm, CEZO=126/103 mmhg, SpO2=93.0 %, Resp=16 B/min Recorded Pressure: LV, Ao, HR=86, Condition=Condition 1 11:22:19 (Left Ventricle) LV 162/24/31, (Aorta) Ao 172/113/141 11:22:53 Catheter was removed 11:23:00 Case End (Physician broke scrub) Assessment: Final Case, HR=63 BPM, Rhythm=nsr, URGQ=148/98 mmhg, Chest Pain=0, Edema=None, [place]=Normal, Skin = Warm, Dry 11:23:11 Right Pulses: Jerry Ped=2, Femoral=2, Radial=2 Neurological: State=Alert, Ox3, ADAMS Respiration: Resp=15 B/min, SpO2=99 % 11:23:15 Catheter(s) removed without difficulty Radial Compression Device Used. 14 mLs of air placed in BAND, RADIAL COMPRESSION TR LARGE 29 29 CM. Affected 11:23:28 hand 97 % O2 saturation. 11:23:59 Bedside Report will be given. 11:24:05 A Left Heart Cath was performed. 11:27:16 HR=75 bpm, GIQD=294/98 mmhg, SpO2=98.0 %, Resp=12 B/min 11:32:21 HYFU=002/101 mmhg 11:32:30 Vitals capture stopped. 11:35:32 [facility] Study - Contrast Media Used In Study Contrast Total Opened (mL) Total Used (mL) Total Wasted (mL) Omnipaque 65 65 0 End Study - Maximum Contrast Load Max Contrast Load (mL) 772.7 End Study - Radiation Exposure Fluoro Time (minutes) 2.7 End Study - Sheaths Sheaths Pulled By Sheath Hold Time (min) Cecilia Mccray End Study - Patient Disposition Complications Transferred To Interventional Outcome No Telemetry Bed No attempt made
[2017-09-25 11:49] LABS: Troponin I 3.29 ng/mL (0.02-0.05)
--- NOTE | 2017-09-25 11:51 | MA ---
cc: Flash Allison MD DATE: 09/25/2017 DATE OF PROCEDURE: 09/25/2017 INDICATION: Non-ST elevation AK in excess. PROCEDURES PERFORMED: 1. Fluoroscopy with interpretation. 2. Left heart catheterization. 3. Left ventriculography. 4. Coronary angiography. METHOD: Risks, benefits, and alternatives were discussed with the patient. The patient understood and consented to the procedure. The patient was brought in to the catheterization lab and placed on the catheterization table. The right wrist was then prepped and draped in sterile fashion. The right wrist was anesthetized with 2% lidocaine. Right radial artery was cannulated and a 6-Cymraes, 7 cm sheath was placed without difficulty. LEFT HEART CATHETERIZATION: Intraventricular hemodynamics measured at 162/24 mmHg. There was no aortic stenosis by transaortic valvular pullback gradient. LEFT VENTRICULOGRAPHY: Left ventriculography was performed in the right anterior oblique view using a 5-Cymraes angled pigtail catheter and a 30 mL contrast injection and good opacification. Left ventricular ejection fraction visually estimated at 60% without regional wall motion abnormalities. No significant mitral regurgitation noted. CORONARY ANGIOGRAPHY: 1. Left main coronary artery is angiographically normal. 2. Left anterior descending coronary artery is a large caliber size and angiographically normal. 3. Left circumflex coronary artery is a codominant vessel and angiographically normal. 4. Right coronary artery is a codominant and angiographically normal. CONCLUSIONS: 1. Angiographically normal coronary arteries. 2. Normal left ventricular systolic function. PLAN: The patient had troponin elevation, likely demand mediated secondary to extreme hypertension or vasospasm. We will add a nondihydropyridine calcium channel charlie in addition to titration of his antihypertensive with lisinopril for better blood pressure control. At this point, he can be discharged later today. We will monitor for any bleeding or arrhythmia. He can follow up with his primary care physician on an outpatient basis. Flash Allison MD SAROJ/KD , 11:30 AM , 11:49 AM
[2017-09-25 12:02] LABS: CKMB Percent 3.7 % (0.0-4.0); Creatine Kinase MB 18.2 ng/mL (0.5-3.6)
[2017-09-25] MEDS: Lisinopril 20 MG Tablet PO SCH ×2 (12:42→13:48)
--- NOTE | 2017-09-25 14:13 | ECG ---
Date Performed: 09/25/2017 Time Performed: 01:24:07 PTAGE: 46 years EKG: Sinus rhythm MARKED LEFT AXIS DEVIATION MODERATE INTRAVENTRICULAR CONDUCTION DELAY MODERATE VOLTAGE CRITERIA FOR LVH, CONSIDER NORMAL VARIANT ABNORMAL ECG NO PREVIOUS TRACING DOCTOR: Thomas Lindo Interpretating Date/Time 09/25/2017 14:11:54
--- NOTE | 2017-09-25 14:13 | ECG ---
Date Performed: 09/25/2017 Time Performed: 05:14:19 PTAGE: 46 years EKG: Sinus rhythm WITH MARKED SINUS ARRHYTHMIA BORDERLINE LEFT AXIS DEVIATION INCOMPLETE RIGHT BUNDLE BRANCH BLOCK NON SPECIFIC T-WAVE ABNORMALITY BORDERLINE ECG PREVIOUS TRACING : 06/27/2015 07.44 With shortened VA interval DOCTOR: Thomas Lindo Interpretating Date/Time 09/25/2017 14:11:01
[2017-09-25] MEDS ORDERED: Iohexol 350 MG/ML 100 ML Vial (for Cath Lab) IV.SIG ONE (14:24)
--- NOTE | 2017-09-25 15:42 | ECHRPT ---
Indication: CORONARY ATHEROSCLEROSIS CONCLUSIONS The left ventricular systolic function is normal with an estimated ejection fraction in the range of 55-60%. Normal left ventricular size. Moderate concentric left ventricular hypertrophy. No regional wall motion abnormalities are present. Trace mitral valve regurgitation. Trivial pulmonary valve regurgitation. BP: / HR: Rhythm: Sinus MEASUREMENTS (Male / Female) Normal Values Technical Quality:Excellent 2D ECHO LV Diastolic Diameter PLAX 5.7 cm 4.2 - 5.9 / 3.9 - 5.3 cm LV Systolic Diameter PLAX 4.4 cm IVS Diastolic Thickness 1.5 cm 0.6 - 1.0 / 0.6 - 0.9 cm LVPW Diastolic Thickness 1.5 cm 0.6 - 1.0 / 0.6 - 0.9 cm LV Relative Wall Thickness 0.5 RV Internal Dim ED PLAX 3.2 cm LVOT Diameter 2.4 cm LA Systolic Diameter LX 4.0 cm 3.0 - 4.0 / 2.7 - 3.8 cm LV Ejection Fraction MOD 4C 55.8 % LV Ejection Fraction 4C AL 57.9 % M-MODE Aortic Root Diameter MM 2.7 cm LA Systolic Diameter MM 4.3 cm LA Ao Ratio MM 1.6 AV Cusp Separation MM 2.5 cm DOPPLER AV Peak Velocity 152.0 cm/s AV Peak Gradient 9.2 mmHg LVOT Peak Velocity 132.0 cm/s LVOT Peak Gradient 7.0 mmHg AV Area Cont Eq pk 3.9 cm MV Area PHT 3.0 cm Mitral E Point Velocity 76.0 cm/s Mitral A Point Velocity 78.0 cm/s Mitral E to A Ratio 1.0 LV E' Lateral Velocity 5.1 cm/s Mitral E to LV E' Lateral Ratio 15.0 LV E' Septal Velocity 5.5 cm/s Mitral E to LV E' Septal Ratio 13.9 PV Peak Velocity 84.2 cm/s PV Peak Gradient 2.8 mmHg FINDINGS LEFT VENTRICLE The left ventricular systolic function is normal with an estimated ejection fraction in the range of 55-60%. Normal left ventricular size. Moderate concentric left ventricular hypertrophy. No regional wall motion abnormalities are present. RIGHT VENTRICLE Normal right ventricular size and systolic function. LEFT ATRIUM The left atrial size is normal. RIGHT ATRIUM The right atrial size is normal. ATRIAL SEPTUM Normal atrial septal thickness without atrial level shunting by limited color doppler interrogation. AORTA The aortic root and proximal ascending aorta are normal in size on limited imaging. MITRAL VALVE Structurally normal mitral valve. Trace mitral valve regurgitation. AORTIC VALVE Trileaflet aortic valve. No aortic valve stenosis or regurgitation. TRICUSPID VALVE Structurally normal tricuspid valve. No tricuspid valve stenosis or regurgitation. PULMONARY VALVE Trivial pulmonary valve regurgitation. VESSELS The inferior vena cava is normal in size. PERICARDIUM No pericardial effusion. Flash Allison MD, FACC (Electronically Signed) Final Date:25 September 2017 15:42
[2017-09-26] MEDS ORDERED: amLODIPine 5 MG Tablet PO SCH (09:00)
[2017-09-26] MEDS ORDERED: Aspirin 325 MG Tablet PO SCH (09:00)
== END 2017-09-25 17:54 | disposition home or self-care (01) ==
LOC: NEDA 01:15 → NEPE 01:15 → NEDH 05:15
PROVIDERS: ADMIT Internal Medicine; ATTEND Internal Medicine

== ENCOUNTER 2017-09-28 21:30 | Inpatient (IN) ==
[2017-09-28] MEDS ORDERED: Morphine Inj 4 MG/ML Vial IV.PUSH ONE ×2 (21:58→22:53)
[2017-09-28 22:37] LABS: Baso % (Auto) 0.4 % (0.0-2.0); Eos # (Auto) 0.2 th/mm3 (0.0-0.4); Hematocrit 41.7 % (39.0-51.0); Hemoglobin 13.6 gm/dL (13.0-17.0); Lymph # (Auto) 2.6 th/mm3 (1.0-4.8); Mean Corpuscular HGB Conc 32.7 % (32.0-36.0); Mean Corpuscular Hemoglobin 25.4 pg (27.0-34.0); Mean Corpuscular Volume 77.6 fL (80.0-100.0); Mean Platelet Volume 8.3 fL (7.0-11.0); Mono % (Auto) 8.4 % (0.0-8.0); Neut # (Auto) 8.4 th/mm3 (1.8-7.7); Neut % (Auto) 68.2 % (16.0-70.0); Platelet Count 221 th/mm3 (150-450); Red Blood Count 5.37 mil/mm3 (4.50-5.90); Red Cell Distribution Width 15.5 % (11.6-17.2); White Blood Count 12.3 th/mm3 (4.0-11.0)
--- NOTE | 2017-09-28 22:41 | ED ---
HPI General Chief Complaint: Chest Pain Stated Complaint: Chest pain/vomiting Time Seen by Provider: 09/28/17 22:26 History of Present Illness HPI narrative: 46-year-old male presents to the emergency department by private vehicle for severe retrosternal chest pain radiating into his back. Patient states he was just recently discharged from the hospital for the same thing. Patient returns stating his pain is very severe. Patient is prescribed Norvasc aspirin lisinopril and pravastatin. Patient reports he has been taking his medications as prescribed. Patient has history of tobacco use. Patient underwent evaluation for non-ST elevation WV during his hospitalization with cardiac catheterization performed by Dr. Allison revealed no evidence of coronary vessel disease thusly non-ST elevation WV and elevated troponins were felt to be related to sequela of uncontrolled hypertension versus vasospasm. Patient returns at this time EKG is dissimilar from discharge EKG. Patient's case was discussed immediately with his body mechanic apprentice. Patient is feeling clinically improved after morphine sulfate 4 mg IV 2 doses; platelet for sublingual nitroglycerin which she refused and Nitropaste which she refused therefore will order nitroglycerin infusion to address his blood pressure as well as possible vasospasm. CTA thoracic and abdominal aorta is negative for dissection or aneurysm. Patient's first troponin I is elevated 0.49 but this is significantly improved from troponin of 3.29 on 09/25/17 CK total remains elevated but is down to 473 from 493 Complete Quality Measures for STEMI Alert Patients Related Data Previous Rx's Medication Instructions Recorded amlodipine [Norvasc] 5 mg PO DAILY #30 tab 09/25/17 aspirin 162 mg PO DAILY #30 tab 09/25/17 lisinopril 40 mg PO DAILY #30 tab 09/25/17 pravastatin 40 mg PO DAILY 30 Days #30 tab 09/25/17 Allergies Allergy/AdvReac Type Severity Reaction Status Date / Time No Known Allergies Allergy Unverified 09/25/17 01:22 Review of Systems Except as stated in HPI: all other systems reviewed are negative [facility] Medical History Medical History Hypertension (Acute) Surgical History Surgical History Hx of cardiac catheterization (Acute) Family History Family History Mother Family history of acute myocardial infarction Social History Social History Substance History: No History of Abuse Second Hand Smoke Exposure: Yes Smoking Status: Former smoker Tobacco Type: Cigarettes How Often Do You Have a Drink Containing Alcohol: Monthly or less Recent Travel in [place] within the Last 8 Weeks: No Recent Out of Country Travel within the Last 8 Weeks: No Immunization History Tetanus Immunization: <5 Years Hx Influenza Vaccine This Season: Yes Exam Narrative Exam Narrative: GENERAL: Well-nourished, well-developed patient. Patient appears to be in distress rocking back and forth on the exam stretcher no respiratory distress SKIN: Focused skin assessment warm/dry. HEAD: Normocephalic. EYES: No scleral icterus. No injection or drainage. NECK: Supple, trachea midline. No JVD or lymphadenopathy. CARDIOVASCULAR: Regular rate and rhythm without murmurs, gallops, or rubs. RESPIRATORY: Breath sounds equal bilaterally. No accessory muscle use. GASTROINTESTINAL: Abdomen soft, non-tender, nondistended. MUSCULOSKELETAL: No cyanosis, or edema. BACK: Nontender without obvious deformity. No CVA tenderness. Course Initial Documented Vital Signs Temperature 98.4 F 09/28/17 21:32 Pulse Rate 78 09/28/17 21:32 Respiratory Rate 16 09/28/17 21:32 Blood Pressure 193/115 H 09/28/17 21:32 Pulse Oximetry 99 09/28/17 21:32 Last Documented Vital Signs Temperature 98.4 F 09/28/17 21:32 Pulse Rate 82 09/29/17 01:08 Respiratory Rate 17 09/29/17 01:14 Blood Pressure 172/113 H 09/29/17 01:08 Pulse Oximetry 100 09/29/17 01:08 Medical Decision Making [facility] Narrative Medical decision making narrative: Patient placed on paste up artist with continuous pulse oximetry IV access obtain stat EKG performed specimens collected and sent for resulting patient ordered for aspirin and sublingual nitroglycerin morphine sulfate 4 mg IV and Reglan 10 mg IV Patient refuses sublingual nitroglycerin as he states it causes him a severe headache therefore ordered nitroglycerin paste chest wall and stat CTA to evaluate for dissection EKG is sinus rhythm rate [address] elevation primarily in lead aVL and 5 which is new compared to last EKG performed 7/13/18. At 10:13 PM discussed patient with Dr. Allison who is familiar with the patient from this most recent admission and did perform the patient's cardiac catheterization. He is aware that EKG is different thinks the patient is worth watching with trending troponins treatment with nitroglycerin and recommend keeping patient n.p.o. after midnight in case he needs repeat cardiac catheterization but does not think he needs a cardiac catheterization right now at this time as a STEMI alert; is aware that I have sent patient for a stat CTA to evaluate for dissection. Patient has Nitropaste and morphine administered for pain management and dose of aspirin. Differential Diagnosis Differential Diagnosis: Chest pain, ACS, WV, vasospasm, Medical Records Medical records reviewed: Yes I reviewed the patient's medical records. Lab Data Lab results reviewed: Yes I reviewed the patient's lab results. Result diagrams: 09/28/17 22:10 09/28/17 22:10 Lab Results 09/28/17 09/28/17 09/28/17 Range/Units 22:10 22:10 22:10 WBC 12.3 H (4.0-11.0) th/mm3 RBC 5.37 (4.50-5.90) mil/mm3 Hgb 13.6 (13.0-17.0) gm/dL Hct 41.7 (39.0-51.0) % MCV 77.6 L (80.0-100.0) fL MCH 25.4 L (27.0-34.0) pg MCHC 32.7 (32.0-36.0) % RDW 15.5 (11.6-17.2) % Plt Count 221 (150-450) th/mm3 MPV 8.3 (7.0-11.0) fL Neut % (Auto) 68.2 (16.0-70.0) % Lymph % (Auto) 21.0 (9.0-44.0) % Hemphill % (Auto) 8.4 H (0.0-8.0) % Eos % (Auto) 2.0 (0.0-4.0) % Baso % (Auto) 0.4 (0.0-2.0) % Neut # (Auto) 8.4 H (1.8-7.7) th/mm3 Lymph # (Auto) 2.6 (1.0-4.8) th/mm3 Hemphill # (Auto) 1.0 H (0.0-0.9) th/mm3 Eos # (Auto) 0.2 (0.0-0.4) th/mm3 Baso # (Auto) 0.0 (0.0-0.2) th/mm3 WBC Differential . Differential Comment Auto diff final PT 10.7 (9.8-11.6) sec INR 1.1 Ratio APTT 27.0 (24.3-30.1) sec Sodium 144 (136-145) meq/L Potassium 3.2 L (3.5-5.1) meq/L Chloride 108 H (98-107) meq/L Carbon Dioxide 26.8 (21.0-32.0) meq/L Anion Gap 9 (5-15) meq/L BUN 18 (7-18) mg/dL Creatinine 1.23 (0.60-1.30) mg/dL Estimated GFR 76 L (>89) mL/min Random Glucose 123 H (74-106) mg/dL Calcium 9.0 (8.5-10.1) mg/dL Magnesium 2.1 (1.5-2.5) mg/dL Total Creatine Kinase 473 H (39-308) U/L CK-MB (CK-2) 3.6 (0.5-3.6) ng/mL CK-MB (CK-2) % 0.8 (0.0-4.0) % Troponin I 0.49 H (0.02-0.05) ng/mL Imaging Data Radiologist's impression: Chest X-Ray 09/28/17 21:45 CONCLUSION: The lungs are clear. Thoracic Aorta CT 09/28/17 21:53 CONCLUSION: 1. Negative CTA of the thoracoabdominal aorta without evidence for aneurysm or dissection. ECG Data EKG Prior to Arrival: No Attestation: I personally reviewed and interpreted this ECG as follows: Prior ECG tracings: available for review Interpretation: EKG normal sinus rhythm rate [address] elevation noted in lead aVL and V3 through V6 without reciprocal changes; this is different from prior EKG 09/25/17 and this has been discussed with patient's managing body mechanic apprentice Dr. Allison Discharge Plan Discharge Disposition Patient Disposition: 30 Still Patient Discharge Condition Condition: Stable Discharge Details Diagnosis: Chest pain, Severe uncontrolled hypertension Physicians Team ED Provider: Judi Salvador Rxs /Orders / Referrals /Forms Prescriptions: No Action pravastatin 40 mg Tablet 40 mg PO DAILY 30 Days Qty: 30 RF: 0 amlodipine [Norvasc] 5 mg Tablet 5 mg PO DAILY Qty: 30 RF: 0 lisinopril 40 mg Tablet 40 mg PO DAILY Qty: 30 RF: 0 aspirin 81 mg Tablet,Chewable 162 mg PO DAILY Qty: 30 RF: 0 Discharge Instructions Patient Printed Instructions: Chest Pain (ED) Status ED Status: With Doctor
[2017-09-28 22:51] LABS: INR 1.1 Ratio; Prothrombin Time 10.7 sec (9.8-11.6)
[2017-09-28 22:57] LABS: Carbon Dioxide 26.8 meq/L (21.0-32.0); Magnesium 2.1 mg/dL (1.5-2.5); Potassium 3.2 meq/L (3.5-5.1)
--- NOTE | 2017-09-28 22:58 | XR ---
EXAM DATE: 09/28/2017 10:13 PM EDT AGE/SEX: 46 years / Male INDICATIONS: . Chest pain. CLINICAL DATA: This is the patient's subsequent encounter. Patient reports that signs and symptoms h ave been present for 1 day and indicates a pain score of 8/10. MEDICAL/SURGICAL HISTORY: None. None. COMPARISON: [facility] – [place], [place], CHEST 2V PA&LAT, 09/25/2017. . FINDINGS: A single AP view of the chest demonstrates the lungs to be symmetrically aerated without evidence of mass, infiltrate or effusion. The cardiomediastinal contours are unremarkable. Osseous structures a re intact. CONCLUSION: The lungs are clear. Electronically signed by: Hawk Sweeney MD 09/28/2017 10:56 PM EDT
[2017-09-28 23:01] LABS: Troponin I 0.49 ng/mL (0.02-0.05)
--- NOTE | 2017-09-28 23:07 | CT ---
EXAM DATE: 09/28/2017 10:28 PM EDT AGE/SEX: 46 years / Male INDICATIONS: Chest pain; rule out aortic dissection. CLINICAL DATA: This is the patient's initial encounter. Patient reports that signs and symptoms have been present for 1 day and indicates a pain score of 8/10. MEDICAL/SURGICAL HISTORY: Cardiovascular disease. Hypertension. Cardiac cath on 09/26/2017 None. RADIATION DOSE: 9.96 CTDI (mGy) COMPARISON: No prior exams available for comparison. TECHNIQUE: Volumetric scanning was performed using a multi-row detector CT scanner during bolus infu justo of 100 ml Omnipaque 350 (iohexol) nonionic water-soluble contrast as a single exam dose. The d sandi was post processed with a variety of visualization algorithms including full volume maximum inten sity projection, multi-planar sliding thin slab reformation, curved planar reformation, and surface r endering techniques. Using automated exposure control and adjustment of the mA and/or kV according t o patient size, radiation dose was kept as low as reasonably achievable to obtain optimal diagnostic quality images. DICOM format image data is available electronically for review and comparison. FINDINGS: Lungs are clear. No pleural pericardial effusion. There is no thoracic or abdominal aortic aneurysm or dissection. No focal abnormalities seen in the liver, spleen, adrenals, kidneys or pancreas. No calcified gallsto jacquelin or biliary ductal dilatation. No acute bony abnormalities identified. CONCLUSION: 1. Negative CTA of the thoracoabdominal aorta without evidence for aneurysm or dissection. Electronically signed by: Hiren Kruger MD 09/28/2017 11:06 PM EDT
[2017-09-28 23:13] LABS: CKMB Percent 0.8 % (0.0-4.0); Creatine Kinase MB 3.6 ng/mL (0.5-3.6)
[2017-09-29] MEDS ORDERED: Nitroglycerin Drip Premix 50 MG/250 ML BOTTLE IV.CONT PRN (00:45)
[2017-09-29] MEDS ORDERED: Lisinopril 20 MG Tablet PO ONE (01:19)
[2017-09-29] MEDS ORDERED: amLODIPine 5 MG Tablet PO ONE (01:19)
--- NOTE | 2017-09-29 03:06 | P.HPIM ---
History of Present Illness Primary Care Physician: No Primary Care Physician History of Present Illness: 46 y/o male with a history of HTN, and HLD presented to the ED with complaints of chest pain for 1 day. Patient states he began having chest pain today that was constant, 10/10 chest pain to the center of his chest with radiation to his back with associated nausea, vomiting, and diaphoresis. He states he tried to lay down but the pain continued. He has received some pain medication and states the pain is about a 5/10, patient is currently also on a nitro drip. He states he started taking his BP medication at night and last took it Thursday night, he states he felt his BP was elevated but did not check it. He denies any fever, chills or abdominal pain. Patient was admitted last week and a cath was completed with no stent placement by Dr. Allison - Diagnosis (1) Chest pain (2) Hypertension (3) HLD (hyperlipidemia) Inpatient Certification: I certify that the inpatient services were ordered in accordance with Medicare regulations governing the order. This includes certification that hospital inpatient services are reasonable and necessary and in the case of services not specified as inpatient-only under 42 CFR 419.22(n), that they are appropriately provided as inpatient services in accordance to with the 2-midnight benchmark under 43 CFR 412.3(e) Estimated Total Length of Stay (Days): 2 Plans for Post Hospital Care: Home Review of Systems All other systems reviewed negative except as stated in HPI [facility] - History History Provided By: Patient - Medical History Medical History: Medical History (Last Updated 09/29/17 @ 02:55 by KIERA Canseco) HLD (hyperlipidemia) (Acute) Hypertension (Acute) - Surgical History Surgical History: Surgical History (Last Reviewed 09/29/17 @ 00:44 by Judi Salvador MD) Hx of cardiac catheterization - Family History Family History: Family History (Last Reviewed 09/29/17 @ 00:44 by Judi Salvador MD) Mother Family history of acute myocardial infarction - Tobacco History Second Hand Smoke Exposure: Yes Tobacco Use In Past 30 Days: No Smoking Status: Former smoker Tobacco Type: Cigarettes - Alcohol History How Often Do You Have a Drink Containing Alcohol: Monthly or less - Substance Use History Substance History: No History of Abuse - Travel History Recent Travel in the [place] Within the Last 8 Weeks: No Recent Travel Out of the Country Within the Last 8 Weeks: No - Immunization History Tetanus Immunization: <5 Years Hx Influenza Vaccine This Season: Yes Medications and Allergies Active Medications: Active Medications Acetaminophen (Tylenol) 650 mg PO Q4H PRN PRN Reason: Temp > 100.4 Amlodipine Besylate (Norvasc) 5 mg PO DAILY NAZIA Aspirin (Aspirin Chew) 162 mg PO DAILY NAZIA Nitroglycerin/Dextrose (Nitroglycerin Drip Premix) 50 mg in 250 mls @ 0 mls/hr IV.CONT TITRATE PRN; Protocol PRN Reason: Per Protocol Last Titration: 09/29/17 02:48 Dose: 25 mcg/min, 7.5 mls/hr Lisinopril (Prinivil) 40 mg PO DAILY NAZIA Ondansetron HCl (Zofran Inj) 4 mg IV.PUSH Q6H PRN PRN Reason: NAUSEA OR VOMITING Pravastatin Sodium (Pravachol) 40 mg PO DAILY [facility] Sodium Chloride (Ns Flush) 2 ml IV.FLUSH UNSCH PRN PRN Reason: FLUSH AFTER USING IV ACCESS Allergies Allergy/AdvReac Type Severity Reaction Status Date / Time No Known Allergies Allergy Unverified 09/25/17 01:22 Exam Vital signs: Vital Signs 09/28/17 21:32 09/28/17 21:52 09/28/17 22:55 Temperature 98.4 F Pulse Rate 78 77 91 H Respiratory Rate 16 20 18 Blood Pressure 193/115 H 179/106 H 169/100 H Pulse Oximetry 99 100 100 09/28/17 22:57 09/28/17 23:09 09/29/17 01:08 Temperature Pulse Rate 82 Respiratory Rate 18 16 Blood Pressure 172/113 H Pulse Oximetry 100 100 09/29/17 01:14 09/29/17 01:29 09/29/17 02:45 Temperature Pulse Rate 79 82 Respiratory Rate 17 18 Blood Pressure 155/101 H 166/110 H Pulse Oximetry 100 99 Intake & Output 09/28/17 09/28/17 09/29/17 06:59 18:59 06:59 Weight 154.221 kg - Constitutional obese - Routine HEENT Exam Head: Present: normocephalic Eye: Present: EOMI, PERRL - Routine Neck Exam Present: supple, full ROM. Absent: JVD, lymphadenopathy - Routine Respiratory Exam Absent: accessory muscle use, rales, rhonchi, wheezes - Routine Cardiovascular Exam Present: RRR - Routine Abdominal Exam Present: soft, normoactive bowel sounds. Absent: distended - Routine Extremities Exam Present: full ROM. Absent: cyanosis, edema - Routine Skin Exam Present: intact - Routine Neurological Exam Present: alert, oriented X3 Results - Labs CBC & Chem 7: 09/28/17 22:10 09/28/17 22:10 Labs: Short CBC 09/28/17 Range/Units 22:10 WBC 12.3 H (4.0-11.0) th/mm3 Hgb 13.6 (13.0-17.0) gm/dL Hct 41.7 (39.0-51.0) % Plt Count 221 (150-450) th/mm3 BMP 09/28/17 22:10 Sodium 144 Potassium 3.2 L Chloride 108 H Carbon Dioxide 26.8 BUN 18 Creatinine 1.23 Calcium 9.0 Cardiac Enzymes 09/28/17 Range/Units 22:10 Total Creatine Kinase 473 H (39-308) U/L CK-MB (CK-2) 3.6 (0.5-3.6) ng/mL Troponin I 0.49 H (0.02-0.05) ng/mL - Imaging Impressions Chest X-Ray 09/28/17 21:45 CONCLUSION: The lungs are clear. Thoracic Aorta CT 09/28/17 21:53 CONCLUSION: 1. Negative CTA of the thoracoabdominal aorta without evidence for aneurysm or dissection. Caprini VTE Risk Assessment Caprini VTE Risk Assessment: Moderate/High Risk (score >= 2) Caprini Risk Assessment Model: Point Value = 1 Point Value = 2 Point Value = 3 Point Value = 5 Age 41-60 Minor surgery BMI > 25 kg/m2 Swollen legs Varicose veins or History of unexplained or recurrent spontaneous Oral contraceptives or hormone replacement Sepsis (< 1 month) Serious lung disease, including pneumonia (< 1 month) Abnormal pulmonary function Acute myocardial infarction Congestive heart failure (< 1 month) History of inflammatory bowel disease Medical patient at bed rest Age 61-74 Arthroscopic surgery Major open surgery (> 45 min) Laparoscopic surgery (> 45 min) Malignancy Confined to bed (> 72 hours) Immobilizing plaster cast Central venous access Age >= 75 History of VTE Family history of VTE Factor V Leiden Prothrombin [id number] Lupus anticoagulant Anticardiolipin antibodies Elevated serum homocysteine Heparin-induced thrombocytopenia Other congenital or acquired thrombophilia Stroke (< 1 month) Elective arthroplasty Hip, pelvis, or leg fracture Acute spinal cord injury (< 1 month) Prophylaxis Regimen: Total Risk Factor Score Risk Level Prophylaxis Regimen 0-1 Low Early ambulation 2 Moderate Order ONE of the following: *Sequential Compression Device (SCD) *Heparin 5000 units SQ BID 3-4 Higher Order ONE of the following medications: *Heparin 5000 units SQ TID *Enoxaparin/Lovenox 40 mg SQ daily (WT < 150 kg, CrCl > 30 mL/min) *Enoxaparin/Lovenox 30 mg SQ daily (WT < 150 kg, CrCl > 10-29 mL/min) *Enoxaparin/Lovenox 30 mg SQ BID (WT < 150 kg, CrCl > 30 mL/min) AND/OR *Sequential Compression Device (SCD) 5 or more Highest Order ONE of the following medications: *Heparin 5000 units SQ TID (Preferred with Epidurals) *Enoxaparin/Lovenox 40 mg SQ daily (WT < 150 kg, CrCl > 30 mL/min) *Enoxaparin/Lovenox 30 mg SQ daily (WT < 150 kg, CrCl > 10-29 mL/min) *Enoxaparin/Lovenox 30 mg SQ BID (WT < 150 kg, CrCl > 30 mL/min) AND *Sequential Compression Device (SCD) Assessment and Plan - Assessment (1) Chest pain Code(s): R07.9 - Chest pain, unspecified Status: Acute (2) Hypertension Code(s): I10 - Essential (primary) hypertension Status: Acute (3) HLD (hyperlipidemia) Code(s): E78.5 - Hyperlipidemia, unspecified Status: Acute - Plan Chest pain, likely secondary to uncontrolled HTN, r/o ACS Troponin .49, EKG reviewed and shows SR with no ST elevation -Serial troponin and ekgs -Nitroglycerin drip, ASA ordered -Resume home lisinopril and amlodipine -Consult cardiology, Patient known to DR. Keegan RENEE, chronic -Resume home medications DVT prophylaxis: SCDs, Heparin SQ Code Status: FULL Discussed Condition With: Patient and RN (1) Chest pain Qualifiers: Chest pain type: precordial pain Qualified Code(s): R07.2 - Precordial pain (2) Hypertension Qualifiers: Hypertension type: unspecified Qualified Code(s): I10 - Essential (primary) hypertension (3) HLD (hyperlipidemia) Qualifiers: Hyperlipidemia type: mixed hyperlipidemia Qualified Code(s): E78.2 - Mixed hyperlipidemia
[2017-09-29] MEDS ORDERED: Heparin - SQ 10,000 UNITS/ML Vial SQ SCH (06:00)
[2017-09-29 07:10] LABS: Troponin I 24.3 ng/mL (0.02-0.05)
[2017-09-29 07:22] LABS: Creatine Kinase MB 146.4 ng/mL (0.5-3.6)
[2017-09-29 07:26] LABS: CKMB Percent 10.9 % (0.0-4.0)
[2017-09-29] MEDS: Acetaminophen 325 MG Tablet PO PRN (07:37)
--- NOTE | 2017-09-29 08:04 | P.CONCA ---
<Brianna Daniel - Last Filed: 09/29/17 08:05> History of Present Illness Service: cardiology Consult date: 09/29/17 Reason for Consult: unstable angina Primary Care Provider: No Primary Care Physician Chief Complaint: chest pain History of Present Illness: This is a pleasant 46 yo AAM tobacco smoker with HTN who was recently admitted for chest pain and had a cardiac catheterization on 09/25/17 showing normal coronary arteries who presented again last evening with reoccurrence of chest pain. He states he had just come home from work, ate dinner and began to take a nap when he felt sudden onset "5/10" substernal chest pain similar to previous occurrence last week. He stood up and walked around but pain intensified to "10/ 10" with associated nausea and one episode of vomiting. He then came to the ED where initial lab work showed troponin of 0.4 which has since increased to 24. EKG shows new T wave inversions anterolaterally. He continues to have chest pain , now back down to "5/5" with a headache attributed to nitrate. Systolic blood pressure upon initial presentation was 193 which has decreased to 147. Recent echo shows a normal LVEF 55-6-%. Thoracic CTA shows no evidence of aneurysm. Review of Systems All other systems reviewed negative except as stated in HPI PMFSH - History History Provided By: Patient - Medical History Medical History: Medical History (Last Updated 09/29/17 @ 02:55 by KIERA Canseco) HLD (hyperlipidemia) (Acute) Hypertension (Acute) - Surgical History Surgical History: Surgical History (Last Reviewed 09/29/17 @ 00:44 by Judi Salvador MD) Hx of cardiac catheterization - Family History Family History: Family History (Last Reviewed 09/29/17 @ 00:44 by Judi Salvador MD) Mother Family history of acute myocardial infarction - Tobacco History Second Hand Smoke Exposure: Yes Tobacco Use In Past 30 Days: No Smoking Status: Former smoker Tobacco Type: Cigarettes - Alcohol History How Often Do You Have a Drink Containing Alcohol: Monthly or less - Substance Use History Substance History: No History of Abuse - Travel History Recent Travel in the [place] Within the Last 8 Weeks: No Recent Travel Out of the Country Within the Last 8 Weeks: No - Immunization History Tetanus Immunization: <5 Years Hx Influenza Vaccine This Season: Yes Medications and Allergies Allergies Allergy/AdvReac Type Severity Reaction Status Date / Time No Known Allergies Allergy Unverified 09/25/17 01:22 Active Medications: Active Medications Acetaminophen (Tylenol) 650 mg PO Q4H PRN PRN Reason: Temp > 100.4 Last Admin: 09/29/17 07:37 Dose: 650 mg Amlodipine Besylate (Norvasc) 5 mg PO DAILY [facility] Aspirin (Aspirin Chew) 162 mg PO DAILY [facility] Heparin Sodium (Porcine) (Heparin Inj) 5,000 units SQ Q8HR NAZIA Last Admin: 09/29/17 06:21 Dose: 5,000 units Nitroglycerin/Dextrose (Nitroglycerin Drip Premix) 50 mg in 250 mls @ 0 mls/hr IV.CONT TITRATE PRN; Protocol PRN Reason: Per Protocol Last Titration: 09/29/17 04:27 Dose: 40 mcg/min, 12 mls/hr Lisinopril (Prinivil) 40 mg PO DAILY [facility] Ondansetron HCl (Zofran Inj) 4 mg IV.PUSH Q6H PRN PRN Reason: NAUSEA OR VOMITING Pravastatin Sodium (Pravachol) 40 mg PO DAILY [facility] Sodium Chloride (Ns Flush) 2 ml IV.FLUSH UNSCH PRN PRN Reason: FLUSH AFTER USING IV ACCESS Exam Vital signs: Vital Signs 09/28/17 21:32 09/28/17 21:52 09/28/17 22:55 Temperature 98.4 F Pulse Rate 78 77 91 H Respiratory Rate 16 20 18 Blood Pressure 193/115 H 179/106 H 169/100 H Pulse Oximetry 99 100 100 09/28/17 22:57 09/28/17 23:09 09/29/17 01:08 Temperature Pulse Rate 82 Respiratory Rate 18 16 Blood Pressure 172/113 H Pulse Oximetry 100 100 09/29/17 01:14 09/29/17 01:29 09/29/17 02:45 Temperature Pulse Rate 79 82 Respiratory Rate 17 18 Blood Pressure 155/101 H 166/110 H Pulse Oximetry 100 99 09/29/17 03:07 09/29/17 03:50 09/29/17 04:00 Temperature 98.2 F Pulse Rate 84 73 72 Respiratory Rate 14 20 Blood Pressure 169/107 H 179/100 H Pulse Oximetry 98 98 09/29/17 05:00 09/29/17 06:00 09/29/17 07:52 Temperature 98.9 F Pulse Rate 71 75 84 Respiratory Rate 17 17 20 Blood Pressure 154/84 H 158/89 H 147/85 H Pulse Oximetry 98 98 97 Intake & Output 09/28/17 09/29/17 09/29/17 18:59 06:59 18:59 Output Total 350 / 350 Balance -350 / -350 Weight 164 kg Output: Urine 350 / 350 Other: Date of Last Bowel Movement 09/25/17 Narrative: GENERAL: obese, AAM, in NAD SKIN: Warm and dry. HEAD: Normocephalic. EYES: No scleral icterus. No injection or drainage. NECK: Supple, trachea midline. No JVD or lymphadenopathy. CARDIOVASCULAR: Regular rate and rhythm without murmurs, gallops, or rubs. RESPIRATORY: Breath sounds equal bilaterally. No accessory muscle use. GASTROINTESTINAL: Abdomen soft, non-tender, nondistended. MUSCULOSKELETAL: No cyanosis, or edema. Results 09/28/17 22:10 09/28/17 22:10 Cardiac Enzymes 09/28/17 09/29/17 Range/Units 22:10 05:25 CK-MB (CK-2) 3.6 146.4 H (0.5-3.6) ng/mL Troponin I 0.49 H 24.30 H* (0.02-0.05) ng/mL Coagulation 09/28/17 Range/Units 22:10 PT 10.7 (9.8-11.6) sec APTT 27.0 (24.3-30.1) sec CBC 09/28/17 Range/Units 22:10 WBC 12.3 H (4.0-11.0) th/mm3 RBC 5.37 (4.50-5.90) mil/mm3 Hgb 13.6 (13.0-17.0) gm/dL Hct 41.7 (39.0-51.0) % Plt Count 221 (150-450) th/mm3 Neut # (Auto) 8.4 H (1.8-7.7) th/mm3 Lymph # (Auto) 2.6 (1.0-4.8) th/mm3 [place] # (Auto) 1.0 H (0.0-0.9) th/mm3 Eos # (Auto) 0.2 (0.0-0.4) th/mm3 Baso # (Auto) 0.0 (0.0-0.2) th/mm3 Comprehensive Metabolic Panel 09/28/17 Range/Units 22:10 Sodium 144 (136-145) meq/L Potassium 3.2 L (3.5-5.1) meq/L Chloride 108 H (98-107) meq/L Carbon Dioxide 26.8 (21.0-32.0) meq/L BUN 18 (7-18) mg/dL Creatinine 1.23 (0.60-1.30) mg/dL Calcium 9.0 (8.5-10.1) mg/dL Intake and Output 09/28/17 09/29/17 09/29/17 22:59 06:59 14:59 Output Total 350 / 350 Balance -350 / -350 Output: Urine 350 / 350 Other: Date of Last Bowel Movement 09/25/17 Weight 154.221 kg 164 kg Assessment and Plan - Assessment (1) Chest pain Code(s): R07.9 - Chest pain, unspecified Status: Acute (2) Severe uncontrolled hypertension Code(s): I10 - Essential (primary) hypertension Status: Acute - Plan 46 yo AAM tobacco smoker with HTN who was recently admitted for chest pain and had a cardiac catheterization on 09/25/17 showing normal coronary arteries who presented again last evening with reoccurrence of chest pain. He states he had just come home from work, ate dinner and began to take a nap when he felt sudden onset "5/10" substernal chest pain similar to previous occurrence last week. He stood up and walked around but pain intensified to "10/10" with associated nausea and one episode of vomiting. unstable angina- Troponin increase overnight to 24, with associated EKG changes consistent with ischemia anterolaterally will plan for repeat cardiac catheterization today; rule out ischemia vs. coronary vasospasm keep npo HTN- SBP improving. amlodipine 5mg lisinopril 10mg continue pravastatin 40mg <Minor,Flash - Last Filed: 09/29/17 11:17> History of Present Illness Primary Care Provider: No Primary Care Physician [facility] - Medical History Medical History: Medical History (Last Updated 09/29/17 @ 02:55 by KIERA Canseco) HLD (hyperlipidemia) (Acute) Hypertension (Acute) - Surgical History Surgical History: Surgical History (Last Reviewed 09/29/17 @ 00:44 by Judi Salvador MD) Hx of cardiac catheterization - Family History Family History: Family History (Last Reviewed 09/29/17 @ 00:44 by Judi Salvador MD) Mother Family history of acute myocardial infarction Medications and Allergies Active Medications: Active Medications Acetaminophen (Tylenol) 650 mg PO Q4H PRN PRN Reason: Temp > 100.4 Last Admin: 09/29/17 07:37 Dose: 650 mg Amlodipine Besylate (Norvasc) 5 mg PO DAILY [facility] Last Admin: 09/29/17 09:15 Dose: 5 mg Aspirin (Aspirin Chew) 162 mg PO DAILY [facility] Last Admin: 09/29/17 09:15 Dose: 162 mg Heparin Sodium (Porcine) (Heparin Inj) 5,000 units SQ Q8HR [facility] Last Admin: 09/29/17 06:21 Dose: 5,000 units Nitroglycerin/Dextrose (Nitroglycerin Drip Premix) 50 mg in 250 mls @ 0 mls/hr IV.CONT TITRATE PRN; Protocol PRN Reason: Per Protocol Last Titration: 09/29/17 04:27 Dose: 40 mcg/min, 12 mls/hr Lisinopril (Prinivil) 40 mg PO DAILY [facility] Last Admin: 09/29/17 09:15 Dose: 40 mg Metoprolol Tartrate (Lopressor) 25 mg PO BID [facility] Last Admin: 09/29/17 09:15 Dose: 25 mg Morphine Sulfate (Morphine Inj) 2 mg IV.PUSH Q3H PRN PRN Reason: CHEST PAIN Ondansetron HCl (Zofran Inj) 4 mg IV.PUSH Q6H PRN PRN Reason: NAUSEA OR VOMITING Pravastatin Sodium (Pravachol) 40 mg PO DAILY [facility] Last Admin: 09/29/17 09:15 Dose: 40 mg Sodium Chloride (Ns Flush) 2 ml IV.FLUSH UNSCH PRN PRN Reason: FLUSH AFTER USING IV ACCESS Exam Vital signs: Vital Signs 09/28/17 21:32 09/28/17 21:52 09/28/17 22:55 Temperature 98.4 F Pulse Rate 78 77 91 H Respiratory Rate 16 20 18 Blood Pressure 193/115 H 179/106 H 169/100 H Pulse Oximetry 99 100 100 09/28/17 22:57 09/28/17 23:09 09/29/17 01:08 Temperature Pulse Rate 82 Respiratory Rate 18 16 Blood Pressure 172/113 H Pulse Oximetry 100 100 09/29/17 01:14 09/29/17 01:29 09/29/17 02:45 Temperature Pulse Rate 79 82 Respiratory Rate 17 18 Blood Pressure 155/101 H 166/110 H Pulse Oximetry 100 99 09/29/17 03:07 09/29/17 03:50 09/29/17 04:00 Temperature 98.2 F Pulse Rate 84 73 72 Respiratory Rate 14 20 Blood Pressure 169/107 H 179/100 H Pulse Oximetry 98 98 09/29/17 05:00 09/29/17 06:00 09/29/17 07:51 Temperature Pulse Rate 71 75 82 Respiratory Rate 17 17 Blood Pressure 154/84 H 158/89 H Pulse Oximetry 98 98 09/29/17 07:52 09/29/17 08:00 09/29/17 08:51 Temperature 98.9 F Pulse Rate 84 81 Respiratory Rate 20 Blood Pressure 147/85 H Pulse Oximetry 97 99 09/29/17 09:00 Temperature Pulse Rate 79 Respiratory Rate Blood Pressure Pulse Oximetry Intake & Output 09/28/17 09/29/17 09/29/17 18:59 06:59 18:59 Output Total 350 / 350 Balance -350 / -350 Weight 164 kg Output: Urine 350 / 350 Other: Date of Last Bowel Movement 09/25/17 Results 09/28/17 22:10 09/28/17 22:10 Cardiac Enzymes 09/28/17 09/29/17 Range/Units 22:10 05:25 CK-MB (CK-2) 3.6 146.4 H (0.5-3.6) ng/mL Troponin I 0.49 H 24.30 H* (0.02-0.05) ng/mL Coagulation 09/28/17 Range/Units 22:10 PT 10.7 (9.8-11.6) sec APTT 27.0 (24.3-30.1) sec CBC 09/28/17 Range/Units 22:10 WBC 12.3 H (4.0-11.0) th/mm3 RBC 5.37 (4.50-5.90) mil/mm3 Hgb 13.6 (13.0-17.0) gm/dL Hct 41.7 (39.0-51.0) % Plt Count 221 (150-450) th/mm3 Neut # (Auto) 8.4 H (1.8-7.7) th/mm3 Lymph # (Auto) 2.6 (1.0-4.8) th/mm3 [place] # (Auto) 1.0 H (0.0-0.9) th/mm3 Eos # (Auto) 0.2 (0.0-0.4) th/mm3 Baso # (Auto) 0.0 (0.0-0.2) th/mm3 Comprehensive Metabolic Panel 09/28/17 Range/Units 22:10 Sodium 144 (136-145) meq/L Potassium 3.2 L (3.5-5.1) meq/L Chloride 108 H (98-107) meq/L Carbon Dioxide 26.8 (21.0-32.0) meq/L BUN 18 (7-18) mg/dL Creatinine 1.23 (0.60-1.30) mg/dL Calcium 9.0 (8.5-10.1) mg/dL Intake and Output 09/28/17 09/29/17 09/29/17 22:59 06:59 14:59 Output Total 350 / 350 Balance -350 / -350 Output: Urine 350 / 350 Other: Date of Last Bowel Movement 09/25/17 Weight 154.221 kg 164 kg Assessment and Plan - Assessment (1) Chest pain Code(s): R07.9 - Chest pain, unspecified Status: Acute (2) Severe uncontrolled hypertension Code(s): I10 - Essential (primary) hypertension Status: Acute - Attending Attestation recent NSTEMI with no apparent high grade stenosis by [facility] thought to be vasospasm presents with recurrent suggestive symptoms and trop 0.5 -> 24 unclear etiology vasospasm vs ruptured plaque needs repeat LHC NPO guideline directed medical mgt <Brianna Daniel - Last Filed: 09/29/17 08:05> (1) Chest pain Qualifiers: Chest pain type: precordial pain Qualified Code(s): R07.2 - Precordial pain <Flash Allison - Last Filed: 09/29/17 11:17> (1) Chest pain Qualifiers: Chest pain type: precordial pain Qualified Code(s): R07.2 - Precordial pain
[2017-09-29] MEDS ORDERED: Morphine Sulfate Inj 2 MG/ML Vial IV.PUSH PRN (08:21)
[2017-09-29] MEDS ORDERED: Metoprolol Tartrate 25 MG Tablet PO SCH (09:00)
[2017-09-29] MEDS ORDERED: amLODIPine 5 MG Tablet PO SCH ×2 (09:00→11:24)
[2017-09-29] MEDS: Lisinopril 20 MG Tablet PO SCH (09:15)
[2017-09-29] MEDS ORDERED: Heparin/NS PF Inj 1,000 ML ONE (09:50)
[2017-09-29] MEDS ORDERED: Heparin 10,000 UNITS/10 ML Vial (for IV use) ONE (09:51)
[2017-09-29] MEDS ORDERED: fentaNYL Citrate Inj 100 MCG/2 ML Ampul ONE (09:51)
[2017-09-29] MEDS ORDERED: Lidocaine PF 1% Inj 30 ML Vial ONE (10:04)
[2017-09-29] MEDS ORDERED: Cangrelor Inj 50,000 MCG Vial ONE (10:50)
--- NOTE | 2017-09-29 10:52 | P.PN ---
Subjective Interval history: 46-year-old male who is because of acute coronary syndrome. Patient had progressive elevation of troponin level up to 24.3. I did discuss the case with Dr. Allison from cardiology. Plans to take the patient to cardiac catheterization again. Patient just had cardiac catheterization done on Thursday and this was reviewed by Dr. Allison and myself. Cardiac catheterization that was recently done showed clean coronary arteries. However in light of the patient's significant cardiac enzyme elevation. Patient will have to have cardiac catheterization again for further evaluation. Patient currently still with chest pain despite being placed on nitro drip. Patient vital signs are stable, patient remains afebrile. Physical Exam Vital signs: Vital Signs 09/28/17 21:32 09/28/17 21:52 09/28/17 22:55 Temperature 98.4 F Pulse Rate 78 77 91 H Respiratory Rate 16 20 18 Blood Pressure 193/115 H 179/106 H 169/100 H Pulse Oximetry 99 100 100 09/28/17 22:57 09/28/17 23:09 09/29/17 01:08 Temperature Pulse Rate 82 Respiratory Rate 18 16 Blood Pressure 172/113 H Pulse Oximetry 100 100 09/29/17 01:14 09/29/17 01:29 09/29/17 02:45 Temperature Pulse Rate 79 82 Respiratory Rate 17 18 Blood Pressure 155/101 H 166/110 H Pulse Oximetry 100 99 09/29/17 03:07 09/29/17 03:50 09/29/17 04:00 Temperature 98.2 F Pulse Rate 84 73 72 Respiratory Rate 14 20 Blood Pressure 169/107 H 179/100 H Pulse Oximetry 98 98 09/29/17 05:00 09/29/17 06:00 09/29/17 07:51 Temperature Pulse Rate 71 75 82 Respiratory Rate 17 17 Blood Pressure 154/84 H 158/89 H Pulse Oximetry 98 98 09/29/17 07:52 09/29/17 08:00 09/29/17 08:51 Temperature 98.9 F Pulse Rate 84 81 Respiratory Rate 20 Blood Pressure 147/85 H Pulse Oximetry 97 99 09/29/17 09:00 Temperature Pulse Rate 79 Respiratory Rate Blood Pressure Pulse Oximetry Intake & Output 09/28/17 09/29/17 09/29/17 18:59 06:59 18:59 Output Total 350 / 350 Balance -350 / -350 Weight 164 kg Output: Urine 350 / 350 Other: Date of Last Bowel Movement 09/25/17 Narrative: GENERAL: Well-developed, obese with BMI 42.9, in no acute distress. alert and orientated HEENT: Head is normocephalic without any lesions or masses noted. Facial features are symmetric. Eyes: Extraocular muscles are intact. Conjunctivae were clear. NECK: Supple without any masses. Trachea midline no deviation. No JVD, CARDIAC: Regular rhythm, regular rate. S1/S2 are heard. No murmurs gallops or rubs. LUNGS: Clear to auscultation bilaterally. No wheeze, rhonchi or rales. No use of accessory muscles on inspiration or expiration. ABDOMEN: Soft, nontender. Nondistended. Bowel sounds heard in all 4 quadrants. No organomegaly or masses. Negative rebound, negative guarding EXTREMITIES: No edema, pulses are equal bilaterally. No cyanosis or clubbing NEUROLOGY: Mood and affect appear appropriate. Cranial nerves II through XII grossly intact. Moving all extremities, speech is clear Results - Labs CBC & Chem 7: 09/28/17 22:10 09/28/17 22:10 Laboratory Results - last 24 hr 09/28/17 09/28/17 09/28/17 22:10 22:10 22:10 WBC 12.3 H RBC 5.37 Hgb 13.6 Hct 41.7 MCV 77.6 L MCH 25.4 L MCHC 32.7 RDW 15.5 Plt Count 221 MPV 8.3 Neut % (Auto) 68.2 Lymph % (Auto) 21.0 [place] % (Auto) 8.4 H Eos % (Auto) 2.0 Baso % (Auto) 0.4 Neut # (Auto) 8.4 H Lymph # (Auto) 2.6 [place] # (Auto) 1.0 H Eos # (Auto) 0.2 Baso # (Auto) 0.0 WBC Differential . Differential Comment Auto diff final PT 10.7 INR 1.1 APTT 27.0 Sodium 144 Potassium 3.2 L Chloride 108 H Carbon Dioxide 26.8 Anion Gap 9 BUN 18 Creatinine 1.23 Estimated GFR 76 L Random Glucose 123 H Calcium 9.0 Magnesium 2.1 Total Creatine Kinase 473 H CK-MB (CK-2) 3.6 CK-MB (CK-2) % 0.8 Troponin I 0.49 H 09/29/17 05:25 WBC RBC Hgb Hct MCV MCH MCHC RDW Plt Count MPV Neut % (Auto) Lymph % (Auto) [place] % (Auto) Eos % (Auto) Baso % (Auto) Neut # (Auto) Lymph # (Auto) [place] # (Auto) Eos # (Auto) Baso # (Auto) WBC Differential Differential Comment PT INR APTT Sodium Potassium Chloride Carbon Dioxide Anion Gap BUN Creatinine Estimated GFR Random Glucose Calcium Magnesium Total Creatine Kinase 1345 H CK-MB (CK-2) 146.4 H CK-MB (CK-2) % 10.9 H* Troponin I 24.30 H* - Imaging Impressions Chest X-Ray 09/28/17 21:45 CONCLUSION: The lungs are clear. Thoracic Aorta CT 09/28/17 21:53 CONCLUSION: 1. Negative CTA of the thoracoabdominal aorta without evidence for aneurysm or dissection. Assessment and Plan - Assessment (1) Chest pain Code(s): R07.9 - Chest pain, unspecified Status: Acute (2) Hypertension Code(s): I10 - Essential (primary) hypertension Status: Acute (3) HLD (hyperlipidemia) Code(s): E78.5 - Hyperlipidemia, unspecified Status: Acute - Plan Chest pain, likely unstable angina -Patient does have significant risk factors to include hypertension, hyperlipidemia, body habitus -Cardiac enzymes were trended and did have significant elevation up to 24.3 -Patient was placed on cardiac protection of aspirin, will start beta-charlie, nitro, statin, KIRK inhibitor, calcium channel charlie -Case was discussed with cardiology extensively. Recommending no anticoagulation at this time. Anticipate cardiac catheterization today. -Continue telemetry -Morphine for pain control Hypertension, hyperlipidemia -Home medications have been resumed DVT prevention -Subcutaneous heparin (1) Chest pain Qualifiers: Chest pain type: precordial pain Qualified Code(s): R07.2 - Precordial pain (2) Hypertension Qualifiers: Hypertension type: unspecified Qualified Code(s): I10 - Essential (primary) hypertension (3) HLD (hyperlipidemia) Qualifiers: Hyperlipidemia type: mixed hyperlipidemia Qualified Code(s): E78.2 - Mixed hyperlipidemia
[2017-09-29] MEDS ORDERED: Misc Info for Pharmacy OTHER STA (11:18)
[2017-09-29] MEDS ORDERED: hydrALAZINE HCl Inj 20 MG/ML Vial ONE (11:20)
[2017-09-29] MEDS ORDERED: hydrALAZINE 50 MG Tablet PO PRN (11:24)
[2017-09-29] MEDS ORDERED: Cangrelor Inj 50,000 MCG in Sodium Chlor 0.9% Inj 250 ML IV.SIG ONE (11:27)
--- NOTE | 2017-09-29 11:27 | CATHPROC ---
[facility] HIS Report Study Information Study Number Admission Scheduled Start Study Start [id number] Sep 29 2017 1:22AM 09/29/2017 Sep 29 2017 9:43AM [place] Service Cardiac Catheterization Admit Source Facility Department Emergency department [facility] - Content Production Specialist Physician and Clinical Staff Initial Flash Pop Relief Mate Cece Gurrola RN Recorder Estefania Sommers,RT(R) Recorder Student, BALL ROLLING MACHINE OPERATOR/RT(R) Scrub Heydi Lee,RT(R) Procedures Performed Procedure Location (Site) Vessel Name Coronary Angiograms LCA Left Coronary Coronary Angiograms RCA Right Coronary IVUS L Heart Cath Stent LAD Mid Left Coronary Wire insertion Radial (right) Radial Art. Equipment Time Printing Worker Supervisor Description Size Mfg Part Number Used/Scraped TRANSDUCER, DANIEL [id number] 09:46 [employer] * Used W/STOCKCOCK *[id number] *[id number] *[id number] *[id number] *[id number] 09:46 [employer] BLANKET,WARM AIR CCL * Used *[id number] 09:46 [employer] PACK, CCL CUSTOM * Used *[id number] 09:46 [employer] SUPPORT, ARTERIAL ADULT [id number] *[id number] Used [id number] 09:46 [employer] PACER PEN, SKIN DUAL W/ RULER * Used *[id number] 10:57 MEDTRONIC STENT, 2.5 12 INTEGRITY 2.5 12 Used *[id number] 10:57 [employer]TRONIC STENT, 3.0 18 INTEGRITY 3.0 18 Used *[id number] 10:54 [employer] 30 ROSY INDEFLATOR Used *[id number] BAND, RADIAL COMPRESSION TR [id number] 10:36 [employer] MEDICAL 29CM Used LARGE 29 *[id number] SHEATH, FR6 RADIAL PRELUDE 09:46 [employer] FR 6 [id number] Used EASE 11CM [id number] 09:46 [employer] WIRE, EXCHANGE 260CM 3MMJ 260CM Used *[id number] 09:46 NAMIC MANIFOLD, 4 PORT * Used *[id number] 09:46 NYCOMED OMNIPAQUE, 350 MG, 150ML 150ML [id number] Used WIRE, RUNTHROUGH NS FLOPPY [id number] 10:39 [employer] MEDICAL 300CM Used .014 300CM *[id number] CATHETER, [employer] LITTLE SHELL TRIBE [id number] 10:42 [employer]OL[employer] Used IMAGING *[id number] Equipment Model, Serial, Lot Number and Expiration Data Description Model Number Serial Number Lot Number Expiration Date CATHETER, [employer] [place] TRIBE [id number] 07-14-2019 IMAGING STENT, 2.5 12 INTEGRITY [id number] 10-08-2018 STENT, 3.0 18 INTEGRITY [id number] 01-07-2019 History: Current Medications Medication Dosage/Unit Route Frequency Last Date/Time Taken LISINOPRIL Statins (any) Beta Krzysztof ASA NORVASC History: Allergies Allergy Reaction No Known Allergies History: Risk Factors Family History of Hypertension Dyslipidemia Previous [facility] Previous Heart Failure Premature CAD Yes No No Yes No Prior Valve Prior PCI Prior CABG Surgery No No No Cerebrovascular Peripheral Artery Chronic Lung On Dialysis Diabetes Disease Disease Disease No No No No No History: Symptoms/Diagnosis Selection Items Chest pain History: Stress Tests Stress or Imaging Studies Performed No History: Other Disease Selection Items HTN History: Other Current Smoker Method Packs a Day Years Used Pack Years Yes Cigars 1 30 30 Labs Hgb (g/dl) Hct (%) WBC (l/cumm) Platelets (thousands) 11.60-17.00 35.00-51.00 4.00-11.00 150.00-450.00 13.6 41.7 12.3 221 Glucose (mg/dl) BUN (mg/dl) Creatinine (mg/dl) BUN:Creatinine (1:x) 74.00-106.00 7.00-18.00 0.50-1.30 10.00-20.00 123 18 1.2 15 Na (meq/l) K (meq/l) 136.00-145.00 3.50-5.10 144 3.2 INR (PTT:PT) 0.90-1.10 1.1 Troponin I (ng/ml) CPK (u/l) CPK-MB (ng/ML) 0.02-0.05 26.00-308.00 0.50-3.60 24.3 1345 99.9 Medication Medication Total Dose (Bolus/Oral) Medication Total Dosage/Unit 1% XYLOCAINE 20 mL BRILINTA 180 mg FENTANYL 50 mcg HEPARIN 8000 units HYDRALAZINE 20 mg NTG (IC) 900 mcg VERSED 2 mg Medications (Bolus/Oral) Medication Time Given Dosage/Unit Administered By Reason VERSED 09/29/2017 10:13:42 AM 2 mg Cece Gurrola 2 mg VERSED given in lab by Cece Gurrola, HANANE in Left Antecubital via Peripheral IV. Ordered by Flash Mccall. FENTANYL 09/29/2017 10:14:02 AM 50 mcg Cece Gurrola 50 mcg FENTANYL given in lab by Cece Gurrola, HANANE in Left Antecubital via Peripheral IV. Ordered by Flash Allison. 1% XYLOCAINE 09/29/2017 10:16:18 AM 20 mL Flash Allison 20 mL 1% XYLOCAINE given in lab by Flash Allison in Right Radial via Subcutaneous. Ordered by Flash Allison. NTG (IC) 09/29/2017 10:18:40 AM 200 mcg Flash Allison 200 mcg NTG (IC) given in lab by Flash Allison in Right Radial via Intra-arterial. Ordered by Flash Allison. HEPARIN 09/29/2017 10:18:50 AM 5000 units Cece Gurrola 5000 units HEPARIN given in lab by Cece Gurrola RN in Left Antecubital via Peripheral IV. Ordered by Flash Allison. HEPARIN 09/29/2017 10:41:06 AM 3000 units Cece Gurrola 3000 units HEPARIN given in lab by Cece Gurrola RN in Left Antecubital via Peripheral IV. Ordered by Flash Allison. NTG (IC) 09/29/2017 10:55:01 AM 300 mcg Flash Allison 300 mcg NTG (IC) given in lab by Flash Allison in Right Radial via Intra-coronary. Ordered by Flash Allison. NTG (IC) 09/29/2017 11:00:23 AM 200 mcg Flash Allison 200 mcg NTG (IC) given in lab by Flash Allison in Right Radial via Intra-coronary. Ordered by Flash Allison. NTG (IC) 09/29/2017 11:02:53 AM 100 mcg Flash Allison 100 mcg NTG (IC) given in lab by Flash Allison in Right Radial via Intra-coronary. Ordered by Flash Allison. NTG (IC) 09/29/2017 11:09:43 AM 100 mcg Flash Allison 100 mcg NTG (IC) given in lab by Flash Allison in Right Radial via Intra-coronary. Ordered by Flash Allison. BRILINTA 09/29/2017 11:15:06 AM 180 mg Cece Gurrola 180 mg BRILINTA given in lab by Cece Gurrola, HANANE via Oral. Ordered by Flash Allison. HYDRALAZINE 09/29/2017 11:20:26 AM 20 mg Cece Gurrola 20 mg HYDRALAZINE given in lab by Cece Gurrola, HANANE in Left Antecubital via Peripheral IV. Ordered by Flash Allison. Medication (Drip) Medication Time Given Dosage/Unit Concentration/Unit Diluent (ml) Solution IV Solutions 09/29/2017 9:49:53 AM 50 mL (IV) NaCl .9 IV Solutions given in lab by Cece Gurrola, HANANE in Left Antecubital via Peripheral IV. Pump/Drip Gilberto w using NaCl .9. KENGREAL BOLUS 09/29/2017 10:58:19 AM 24 mL 24 mL KENGREAL BOLUS given in lab by Cece Gurrola, HANANE in Left Antecubital via Peripheral IV. Order ed by Flash Allison. KENGREAL DRIP 09/29/2017 10:59:45 AM 4.004 mcg/kg/min 50 mg 250 NaCl .9 4.004 mcg/kg/min KENGREAL DRIP given in lab by Cece Gurrola, HANANE in Left Antecubital via Peripheral IV. Pump/Drip Flow = 197 ml/hr using NaCl .9 with a concentration of 50 mg in 250 ml. Ordered by Flash Allison. NITROGLYCERIN DRIP 09/29/2017 9:49:34 AM 50 mcg/min 50 mg 250 D5W Patient arrived on 50 mcg/min NITROGLYCERIN DRIP in Right Antecubital via Peripheral IV. Pump/Drip Fl ow = 15 ml/hr using D5W with a concentration of 50 mg in 250 ml. NITROGLYCERN DRIP 09/29/2017 10:13:27 AM 50 mcg STOPPED 50 mcg NITROGLYCERN DRIP STOPPED given in lab by Cece Gurrola, HANANE. Ordered by Flash Allison. Initial Case Assessment Cardiovascular NIBP Chest Pain 133/79 0 Edema Present Skin color Skin None Normal Warm Dry Circulatory - Right Pulses Dorsalis Pedis Femoral Radial 2 2 2 Scale (0,1,2,3,4,d) Scale (0,1,2,3,4,d) Circulatory - Lower Extremities Color Lower Right Color Lower Left Normal Normal Neurological State Oriented to time-place- Alert Moves all extremities person Respiration - General SpO2 (%) 100 Chronological Log Time Study Chronological Log 9:49:02 Patient arrived via Bed. 9:49:02 Patient Name, D.O.B, / Armband Verified By R.N. 9:49:03 Consent signed by the physician and the patient and verified by the Content Production Specialist staff. 9:49:06 Verbal Stimulation=2 Physical Stimulation=2 Airway=2 Respiration=2 TOTAL=8. (0=absent, 1=l imited, 2=present) 9:49:13 Allens test performed on the right radial and ulnar artery. 9:49:20 Patient has been NPO for More than 6Hrs. 9:49:21 Skin Breakdown none per pt 9:49:22 Patient Warmer Placed on the Table. 9:49:24 Maria E Prominences Protected 9:49:27 A # 20 IV was noted in the Antecubital (right). Grade = 0 Patient arrived on 50 mcg/min NITROGLYCERIN DRIP in Right Antecubital via Peripheral IV. Pump/D rip Flow = 15 ml/hr 9:49:34 using D5W with a concentration of 50 mg in 250 ml. 9:49:53 IV Solutions given in lab by Cece Gurrola, HANANE in Left Antecubital via Peripheral IV. Pump /Drip Flow using NaCl .9. 9:50:10 History and physical on the chart or being dictated. Assessment: Initial Case, BJBR=202/79 mmhg, Chest Pain=0, Edema=None, Color=Normal, Skin = Warm , Dry Right Pulses: Jerry Ped=2, Femoral=2, Radial=2 Lower Right Extremities: Color=Normal 9:50:11 Lower Left Extremities: Color=Normal Neurological: State=Alert, Ox3, ADAMS Respiration: IqF6=929 % Vitals capture started with the following parameters, Patient=Adult, Interval=5 min, Initial Pr rtdwzf=870 mmHg, 9:55:25 Deflation Rate=5 mmHg, Cuff placed on Left Arm 9:56:12 ODGQ=543/79 mmhg 9:58:32 Reference ECG taken 10:02:02 HR=82 bpm, VHOA=616/91 mmhg, SpO2=99.0 %, Resp=18 B/min 10:06:16 HR=77 bpm, XLVP=053/92 mmhg, SpO2=99.0 %, Resp=16 B/min 10:07:01 MD paged 10:08:24 Pressure channel 1 zeroed. 10:11:17 HR=70 bpm, AIMZ=798/78 mmhg, SpO2=98.0 %, Resp=16 B/min 10:11:39 MD arrived. Time Out. Correct patient, correct procedure, correct physician, labs, allergies, and equipment verified with lab scientist 10:13:00 team present. Fire risk assesment completed (see hard stop sheet for coding). Time Out Conc urred by MD and individual staff in procedure. 10:13:27 50 mcg NITROGLYCERN DRIP STOPPED given in lab by Cece Gurrola, HANANE. Ordered by Jonah Allison 10:13:42 2 mg VERSED given in lab by Cece Gurrola RN in Left Antecubital via Peripheral IV. Orde red by Flash Allison. 10:14:02 50 mcg FENTANYL given in lab by Cece Gurrola, HANANE in Left Antecubital via Peripheral IV. Ordered by Flash Allison. 10:16:14 Case Start 10:16:18 20 mL 1% XYLOCAINE given in lab by Flash Allison in Right Radial via Subcutaneous. Ordered by Flash Allison. 10:16:20 HR=86 bpm, YTPZ=960/87 mmhg, SpO2=97.0 %, Resp=35 B/min 10:17:33 Access site was Radial Artery. A SHEATH, FR6 RADIAL PRELUDE EASE 11CM FR 6 was advanced into the Radial (right) using the Perc utaneous 10:17:49 technique. 10:18:40 200 mcg NTG (IC) given in lab by Flash Allison in Right Radial via Intra-arterial. Ordered by Flash Allison. 5000 units HEPARIN given in lab by Cece Gurrola, HANANE in Left Antecubital via Peripheral IV. O rdered by Keegan 10:18:50 Flash. A JR 5.0 INFINITI CATHETER FR 5 was advanced over a wire. OMNIPAQUE, 350 MG, 150ML 150ML was us ed for 10:21:10 injections. 10:21:17 HR=82 bpm, NFNW=037/84 mmhg, SpO2=97.0 %, Resp=14 B/min Recorded Pressure: LV, HR=85, Condition=Condition 1 10:21:53 (Left Ventricle) LV 126/-8/8 10:22:10 The RCA was injected and visualized at various angles. OMNIPAQUE, 350 MG, 150ML 150ML used . After removing the current catheter a JL 3.5 INFINITI CATHETER FR 6 was advanced over a WIRE, E XCHANGE 260CM 10:22:47 3MMJ 260CM. Recorded Pressure: Ao, HR=84, Condition=Condition 1 10:25:04 (Aorta) Ao 139/90/114 10:25:13 The LCA was injected and visualized at various angles. OMNIPAQUE, 350 MG, 150ML 150ML used . 10:26:16 HR=79 bpm, HBBS=509/82 mmhg, SpO2=98.0 %, Resp=16 B/min 10:31:19 HR=80 bpm, PWVR=083/81 mmhg, SpO2=98.0 %, Resp=26 B/min 10:34:41 Catheter was removed 10:36:18 HR=78 bpm, TWSD=992/97 mmhg, SpO2=99.0 %, Resp=20 B/min A XBLAD 4.0 GUIDE CATHETER FR 6 was advanced over a wire. OMNIPAQUE, 350 MG, 150ML 150ML was us ed for 10:39:04 injections. 3000 units HEPARIN given in lab by Cece Gurrola RN in Left Antecubital via Peripheral IV. O rdered by Keegan, 10:41:06 Flash. 10:41:21 HR=75 bpm, MNOU=628/103 mmhg, SsC5=746.0 %, Resp=15 B/min 10:42:23 A WIRE, RUNTHROUGH NS FLOPPY .014 300CM 300CM was inserted via Radial (right). 10:42:30 An ivus was advanced through the lesion. Images saved onto IVUS hard drive 10:42:51 IVUS in progress using CATHETER, [employer] LITTLE SHELL TRIBE IMAGING Mean Luminal Area measured 4.7 10:45:59 IVUS catheter removed 10:46:22 HR=76 bpm, TBLP=514/92 mmhg, McY8=809.0 %, Resp=26 B/min 10:48:12 Activated Clotting Time Drawn 10:51:24 HR=76 bpm, QHZL=334/103 mmhg, OaZ8=118.0 %, Resp=16 B/min 10:54:31 ACT (Normal Range 90-180) = 311 10:55:01 300 mcg NTG (IC) given in lab by Flash Allison in Right Radial via Intra-coronary. Ordered by Flash Allison. An STENT, 3.0 18 INTEGRITY 3.0 18 Bare Metal Stent was inserted through a XBLAD 4.[address] JACQUI [address] FR 6 over 10:55:34 a WIRE, RUNTHROUGH NS FLOPPY .014 300CM 300CM. A STENT, 3.0 18 INTEGRITY 3.0 18 was deployed using a 30 ROSY INDEFLATOR at 16 atmospheres for 2 0 seconds in 10:55:36 the LAD Mid. 10:56:27 HR=86 bpm, KSJN=754/99 mmhg, MaC1=566.0 %, Resp=16 B/min 10:57:06 Delivery device removed An STENT, 2.5 12 INTEGRITY 2.5 12 Bare Metal Stent was inserted through a XBLAD 4.[address] JACQUI [address] FR 6 over 10:58:06 a WIRE, RUNTHROUGH NS FLOPPY .014 300CM 300CM. 24 mL KENGREAL BOLUS given in lab by Cece Gurrola, HANANE in Left Antecubital via Peripheral IV. Ordered by Keegan, 10:58:19 Flash. A STENT, 2.5 12 INTEGRITY 2.5 12 was deployed using a 30 ROSY INDEFLATOR at 16 atmospheres for 1 0 seconds in 10:59:31 the LAD Mid. 4.004 mcg/kg/min KENGREAL DRIP given in lab by Cece Gurrola, HNAANE in Left Antecubital via Malinda pheral IV. Pump/Drip 10:59:45 Flow = 197 ml/hr using NaCl .9 with a concentration of 50 mg in 250 ml. Ordered by Aleksandra Allison. 11:00:04 Re-inflated the stent balloon in the LAD Mid to 14 ROSY for 10 seconds. 11:00:23 200 mcg NTG (IC) given in lab by Flash Allison in Right Radial via Intra-coronary. Ordered by Flash Allison. 11:01:04 Delivery device removed 11:01:24 HR=84 bpm, ECOJ=458/92 mmhg, SpO2=99.0 %, Resp=14 B/min 11:02:53 100 mcg NTG (IC) given in lab by Flash Allison in Right Radial via Intra-coronary. Ordered by Flash Allison. 11:06:25 HR=75 bpm, VYXV=808/102 mmhg, SpO2=99.0 %, Resp=13 B/min 11:08:07 Wire removed 11:08:29 Catheter was removed 11:09:43 100 mcg NTG (IC) given in lab by Flash Allison in Right Radial via Intra-coronary. Ordered by Flash Allison. 11:10:08 Case End (Physician broke scrub) Radial Compression Device Used. 20 mLs of air placed in BAND, RADIAL COMPRESSION TR LARGE 29 2 9CM. Affected 11:11:12 hand ~O2 SATURATION~ % O2 saturation. 11:11:30 HR=79 bpm, VKJL=609/89 mmhg, XeT9=066.0 %, Resp=18 B/min 11:12:00 No case complications noted. 11:12:07 Bedside Report will be given. 11:12:12 A Left Heart Cath was performed. 11:15:06 180 mg BRILINTA given in lab by Cece Gurrola RN via Oral. Ordered by Flash Allison. 11:16:27 HR=76 bpm, NCVJ=237/99 mmhg, SpO2=99.0 %, Resp=12 B/min 20 mg HYDRALAZINE given in lab by Cece Gurrola RN in Left Antecubital via Peripheral IV. O rdered by Keegan 11:20:26 Flash. 11:21:52 Vitals capture stopped. 11:23:43 [facility] End Study - Contrast Media Used In Study Contrast Total Opened (mL) Total Used (mL) Total Wasted (mL) Omnipaque 205 205 0 End Study - Maximum Contrast Load Max Contrast Load (mL) 683.3 End Study - Radiation Exposure Fluoro Time (minutes) 7.4 End Study - Patient Disposition Complications Transferred To Interventional Outcome No Critical Care Bed successful
--- NOTE | 2017-09-29 12:16 | MA ---
cc: Flash Allison MD DATE: 09/29/2017 DATE OF PROCEDURE: 09/29/2017. INDICATION: Non-ST elevation myocardial infarction. PROCEDURES PERFORMED: 1. Fluoroscopy with interpretation. 2. Coronary angiography. 3. Intravascular ultrasound of the left anterior descending coronary artery. 4. Percutaneous endovascular stenting with bare metal stent to the left anterior descending coronary artery. PRESENTATION: He is a gentleman who recently underwent cardiac catheterization within the last few days after elevated troponin in the setting of hypertension. Coronary angiography did not reveal high-grade stenosis and he was managed medically and thought to be coronary vasospasm. He represents now with severe chest pain symptoms, some anterior and anterolateral ST changes and dramatic jump in his troponin again. He is now here for repeat catheterization. METHOD: Risks, benefits and alternatives discussed with the patient. The patient understood and consented to the procedure. The patient was brought into the catheterization lab, placed on the catheterization table. The right wrist was prepped and draped in sterile fashion. The right wrist was anesthetized with 2% lidocaine. Right radial artery was cannulated. A 6-Maltese, 11-cm sheath was placed without difficulty. 200 mcg of intraarterial nitroglycerin in additional to 3000 units of intravenous heparin was administered. CORONARY ANGIOGRAPHY: 1. Left main coronary artery is angiographically normal. 2. Left anterior descending coronary artery has some mild luminal irregularities in the proximal segment. Right in the mid-segment, just beyond the bifurcation of a diagonal branch, there is what appears to be some hazy plaque. Angiographically it looks only like 30% but after further review with intravascular ultrasound, the calculated severity of stenosis was 75%. The mid to distal left anterior descending coronary beyond that also had rather diffuse disease, particularly by intravascular ultrasound, small caliber size vessel distally. There is also a moderate sized diagonal branch which reaches out to the far anterolateral wall, but it is less than a 2 mm vessel in the mid to distal portion. There does appear to be thrombus present actually in the mid-segment with a subtotal occlusion,. 3. Left circumflex is a codominant vessel. It gives rise to an obtuse marginal branch, left-sided posterior descending branch, both angiographically normal. 4. Right coronary artery is a codominant vessel and gives rise to posterior descending branch, angiographically normal. CONCLUSIONS: Intravascular ultrasound. Given the patient's presentation along with EKG changes, concerned more about the anterior wall than the anterolateral diagonal branch. The diagonal branch appeared just to be too small to entertain any potential invasive strategies such as thrombectomy or angioplasty for risk of perforation. I figured we can medically manage the diagonal branch. I wanted to rule out ruptured plaque in the LAD distribution with a hazy appearance and EKG changes. PERCUTANEOUS INTERVENTION: A 300 cm Terumo Runthrough wire was navigated down the distal left anterior descending coronary artery. After engagement with an EBU 4.0 guide catheter. Heparin were administered throughout the intravascular ultrasound procedure. The [place] [facility] ultrasound catheter was then prepped and advanced down. At the mid-segment right where the area was hazy, there was significant plaque burden and also what appeared to be possibly active plaque. The calculated severity of stenosis was 75%. There was also rather diffuse disease distally. Given the severe stenosis, we elected to proceed with percutaneous intervention Given the troponin and EKG changes and now intravascular ultrasound, we did proceed with endovascular stenting. Calculated luminal diameter was greater than 4 mm, but the vessel lumen appeared smaller than that, so we chose a 3.0 x 18 mm stent. After stent deployment, the distal edge had severe vasospasm which did not correct after administration of nitroglycerin. For concern of maybe an edge dissection flap, we took a 2.5 x 12 mm bare-metal stent with overlap and deployed. Repeat angiography showed no residual stenosis, SKY 3 flow. The patient received Cangrelor and heparin throughout the entire procedure to maintain appropriate anticoagulation. CONCLUSIONS: 1. Active plaque in the mid-left anterior descending coronary artery confirmed by intravascular ultrasound with subsequent stenting using bare metal stent. 2. Small vessel diagonal branch disease. PLAN: This is an unusual case. As I look back at the prior films angiographically, things looked pretty good, did not see an obvious culprit particularly in the diagonal branch. Intravascular ultrasound clearly shows that there is significant plaque burden and, given his symptoms with EKG changes, I suspect that he has transient occlusion and reperfusion due to plaque rupture and wanted to protect the LAD territory. At this point, given the small caliber size of the diagonal branch and the fact that the stenosis is on the mid to distal segment, I do think it is a good candidate for any invasive approach. Unfortunately, that may still cause residual chest pain symptoms, so we will initiate aspirin, ticagrelor. He will continue with statin and angiotensin converting enzyme inhibitor. We are going to add carvedilol for additional blood pressure control and long-acting nitrate for small vessel disease. Hopefully this will translate well into symptomatic improvement. Unless he clearly has evidence for stent thrombosis in the LAD territory, I would not bring him back for repeat cardiac catheterization for the diagonal branch. MD SAROJ De La Cruz/SB , 11:36 AM , 12:15 PM
[2017-09-29 13:26] LABS: Troponin I 25.5 ng/mL (0.02-0.05)
[2017-09-29 13:39] LABS: Creatine Kinase MB 129.5 ng/mL (0.5-3.6)
[2017-09-29 13:59] LABS: CKMB Percent 10.1 % (0.0-4.0)
--- NOTE | 2017-09-29 16:01 | XR ---
EXAM DATE: 09/29/2017 3:30 PM EDT AGE/SEX: 46 years / Male INDICATIONS: Shortness of breath and chest pain after cardiac cath procedure. CLINICAL DATA: This is the patient's initial encounter. Patient reports that signs and symptoms have been present for 1 day and indicates a pain score of 5/10. MEDICAL/SURGICAL HISTORY: . Cardiovascular disease. Hypertension. Cardiac cath on 09/26/2017 Non e. . Cardiac cath. COMPARISON: [facility], CHEST 1V SINGLE AP, 09/28/2017. . FINDINGS: The lungs are clear without infiltrate, nodule, or mass. There is no appreciable pleural effusion for technique. Heart and mediastinum are unremarkable. CONCLUSION: No acute cardiopulmonary disease. Electronically signed by: Jarad Iraheta MD 09/29/2017 3:59 PM EDT
--- NOTE | 2017-09-29 20:42 | ECG ---
Date Performed: 09/29/2017 Time Performed: 04:01:24 PTAGE: 46 years EKG: Sinus rhythm Leftward axis Extensive T wave changes may be due to myocardial ischemia Abnormal ECG PREVIOUS TRACING : 09/28/2017 21.[address] elevation consitent with injury pattern clinical correlation recommended DOCTOR: Colin Andrew Interpretating Date/Time 09/29/2017 20:41:58
--- NOTE | 2017-09-29 20:52 | ECG ---
Date Performed: 09/28/2017 Time Performed: 21:47:08 PTAGE: 46 years EKG: Sinus rhythm NONSPECIFIC ST ELEVATION BORDERLINE ECG PREVIOUS TRACING : 09/25/2017 05.14 When compared with prio thereis st elevation in anterior le ads suggestive of acute anterior Myocardial Infarction DOCTOR: Colin Andrew Interpretating Date/Time 09/29/2017 20:50:28
[2017-09-30 03:57] LABS: Baso % (Auto) 0.2 % (0.0-2.0); Eos # (Auto) 0.2 th/mm3 (0.0-0.4); Eos % (Auto) 2.3 % (0.0-4.0); Hematocrit 40.2 % (39.0-51.0); Hemoglobin 12.9 gm/dL (13.0-17.0); Lymph # (Auto) 2.7 th/mm3 (1.0-4.8); Lymph % (Auto) 30.5 % (9.0-44.0); Mean Corpuscular HGB Conc 32.2 % (32.0-36.0); Mean Corpuscular Hemoglobin 25.1 pg (27.0-34.0); Mean Corpuscular Volume 77.9 fL (80.0-100.0); Mono # (Auto) 0.7 th/mm3 (0.0-0.9); Mono % (Auto) 7.5 % (0.0-8.0); Neut # (Auto) 5.3 th/mm3 (1.8-7.7); Neut % (Auto) 59.5 % (16.0-70.0); Platelet Count 218 th/mm3 (150-450); Red Blood Count 5.16 mil/mm3 (4.50-5.90); Red Cell Distribution Width 15.9 % (11.6-17.2); White Blood Count 8.9 th/mm3 (4.0-11.0)
[2017-09-30 04:21] LABS: Anion Gap 8 meq/L (5-15); Blood Urea Nitrogen 14 mg/dL (7-18); Calcium 9.2 mg/dL (8.5-10.1); Carbon Dioxide 26.6 meq/L (21.0-32.0); Chloride 105 meq/L (98-107); Glomerular Filtration Rate Greater Than 89 mL/min (>89); Glucose,Random 109 mg/dL (74-106); Potassium 3.8 meq/L (3.5-5.1); Sodium 140 meq/L (136-145)
[2017-09-30] MEDS ORDERED: Isosorbide Mononitrate 30 MG ER 24HR Tablet (Imdur) PO SCH (07:00)
--- NOTE | 2017-09-30 08:17 | P.PNIM ---
Subjective Interval history: The patient was resting comfortably in bed. He stated that he needs to quit smoking cigars. He denied any pain. He had questions about going back to work. Discussed with nursing. Physical Exam Vital signs: Vital Signs 09/29/17 08:51 09/29/17 09:00 09/29/17 11:00 Temperature 98.2 F Pulse Rate 81 79 68 Respiratory Rate 20 Blood Pressure 150/89 H Pulse Oximetry 99 09/29/17 12:00 09/29/17 13:00 09/29/17 14:00 Temperature 98.2 F Pulse Rate 71 79 80 Respiratory Rate 20 Blood Pressure 145/89 H Pulse Oximetry 100 09/29/17 15:00 09/29/17 15:50 09/29/17 15:52 Temperature 98.2 F Pulse Rate 93 H 68 93 H Respiratory Rate 20 Blood Pressure 154/89 H Pulse Oximetry 99 09/29/17 17:00 09/29/17 17:51 09/29/17 19:00 Temperature Pulse Rate 92 H 80 98 H Respiratory Rate Blood Pressure Pulse Oximetry 09/29/17 20:00 09/29/17 21:00 09/29/17 22:00 Temperature 98.4 F Pulse Rate 81 82 83 Respiratory Rate 18 Blood Pressure 131/60 Pulse Oximetry 99 09/29/17 23:00 09/30/17 00:00 09/30/17 01:00 Temperature 98.2 F Pulse Rate 82 75 72 Respiratory Rate 20 Blood Pressure 126/65 Pulse Oximetry 98 09/30/17 02:00 09/30/17 03:00 09/30/17 04:00 Temperature 98.0 F Pulse Rate 77 81 70 Respiratory Rate 20 Blood Pressure 111/79 Pulse Oximetry 98 09/30/17 05:00 09/30/17 07:28 Temperature 98.6 F Pulse Rate 63 80 Respiratory Rate 20 Blood Pressure 115/62 Pulse Oximetry 99 Intake & Output 09/29/17 09/30/17 09/30/17 18:59 06:59 18:59 Intake Total 1690 / 1690 240 / 240 Output Total 1000 / 1000 800 / 800 Balance 690 / 690 -560 / -560 Intake: IV 400 / 400 Nitroglycerin Drip Premix 50 mg 150 / 150 In 250 ml @ Per Protocol IV. CONT TITRATE PRN Rx#:[id number] Kengreal Inj 50,000 MCG In NS 250 / 250 Inj 250 ML @ As Directed IV.SIG ONCE ONE Rx#:[id number] Oral 1290 / 1290 240 / 240 Output: Urine 1000 / 1000 800 / 800 Other: Date of Last Bowel Movement 09/25/17 09/28/17 Narrative: GENERAL: Well-developed, in no acute distress. HEENT: Head is normocephalic without any lesions or masses noted. Facial features are symmetric. NECK: Supple without any masses. Trachea midline no deviation. No JVD, CARDIAC: Regular rhythm, regular rate. S1/S2 are heard. No murmurs gallops or rubs. LUNGS: Clear to auscultation bilaterally. No wheeze, rhonchi or rales. No use of accessory muscles on inspiration or expiration. ABDOMEN: Soft, nontender. Nondistended. Bowel sounds heard in all 4 quadrants. No organomegaly or masses. Negative rebound, negative guarding. EXTREMITIES: No edema, pulses are equal bilaterally. No cyanosis or clubbing. NEUROLOGY: Cranial nerves II through XII grossly intact. Moving all extremities , speech is clear Results - Labs CBC & Chem 7: 09/30/17 03:46 09/30/17 03:46 Laboratory Results - last 24 hr 09/29/17 09/30/17 09/30/17 12:10 03:45 03:46 WBC 8.9 RBC 5.16 Hgb 12.9 L Hct 40.2 MCV 77.9 L MCH 25.1 L MCHC 32.2 RDW 15.9 Plt Count 218 MPV 8.0 Neut % (Auto) 59.5 Lymph % (Auto) 30.5 Randall % (Auto) 7.5 Eos % (Auto) 2.3 Baso % (Auto) 0.2 Neut # (Auto) 5.3 Lymph # (Auto) 2.7 Randall # (Auto) 0.7 Eos # (Auto) 0.2 Baso # (Auto) 0.0 WBC Differential . Differential Comment Auto diff final Puncture Site Cancelled Patient Temperature Cancelled O2 Saturation Cancelled ABG pH Cancelled ABG pCO2 Cancelled ABG pO2 Cancelled ABG HCO3 Cancelled ABG O2 Content Cancelled ABG Base Excess Cancelled ABG Methemoglobin Cancelled Chris Test Cancelled Hemoglobin Cancelled Carboxyhemoglobin Cancelled O2 Delivery Device Cancelled Liter Flow Cancelled Vent Setting Cancelled Inspired O2 Cancelled Critical Value Cancelled Sodium Potassium Chloride Carbon Dioxide Anion Gap BUN Creatinine Estimated GFR Random Glucose Calcium Total Creatine Kinase 1281 H CK-MB (CK-2) 129.5 H CK-MB (CK-2) % 10.1 H* Troponin I 25.50 H* 09/30/17 03:46 WBC RBC Hgb Hct MCV MCH MCHC RDW Plt Count MPV Neut % (Auto) Lymph % (Auto) Randall % (Auto) Eos % (Auto) Baso % (Auto) Neut # (Auto) Lymph # (Auto) Randall # (Auto) Eos # (Auto) Baso # (Auto) WBC Differential Differential Comment Puncture Site Patient Temperature O2 Saturation ABG pH ABG pCO2 ABG pO2 ABG HCO3 ABG O2 Content ABG Base Excess ABG Methemoglobin Chris Test Hemoglobin Carboxyhemoglobin O2 Delivery Device Liter Flow Vent Setting Inspired O2 Critical Value Sodium 140 Potassium 3.8 Chloride 105 Carbon Dioxide 26.6 Anion Gap 8 BUN 14 Creatinine 0.88 Estimated GFR Greater than 89 Random Glucose 109 H Calcium 9.2 Total Creatine Kinase CK-MB (CK-2) CK-MB (CK-2) % Troponin I - Imaging Impressions Chest X-Ray 09/29/17 00:00 CONCLUSION: No acute cardiopulmonary disease. Assessment and Plan - Assessment (1) Chest pain Code(s): R07.9 - Chest pain, unspecified Status: Acute (2) Hypertension Code(s): I10 - Essential (primary) hypertension Status: Acute (3) HLD (hyperlipidemia) Code(s): E78.5 - Hyperlipidemia, unspecified Status: Acute - Plan Chest pain -Patient does have significant risk factors to include hypertension, hyperlipidemia, body habitus -Cardiac enzymes were trended and did have significant elevation up to 24.3 -Patient was placed on cardiac protection of aspirin, start beta-charlie, nitro , statin, KIRK inhibitor, calcium channel charlie -Case was discussed with cardiology extensively. Repeat cardiac catheterization : found with IVUS to have 75% mid-LAD stenosis and underwent primary PCI with HANSA and BMS for small stent dissection flap vs severe vasospasm not relieved with intracoronary NTG. -the pt will continue cardiac regimen including ASA and Brilinta. -He will follow-up with cardiology upon discharge. - smoking cessation instruction. Hypertension, hyperlipidemia -Home medications have been resumed DVT prevention -Subcutaneous heparin (1) Chest pain Qualifiers: Chest pain type: precordial pain Qualified Code(s): R07.2 - Precordial pain (2) Hypertension Qualifiers: Hypertension type: unspecified Qualified Code(s): I10 - Essential (primary) hypertension (3) HLD (hyperlipidemia) Qualifiers: Hyperlipidemia type: mixed hyperlipidemia Qualified Code(s): E78.2 - Mixed hyperlipidemia
[2017-09-30] MEDS: Lisinopril 20 MG Tablet PO SCH (08:45)
--- NOTE | 2017-09-30 09:00 | P.PNCA ---
Subjective Interval history: No events overnight. feeling well with no recurrence of chest pain. no dyspnea. Physical Exam Vital signs: Vital Signs 09/29/17 09:00 09/29/17 11:00 09/29/17 12:00 Temperature 98.2 F 98.2 F Pulse Rate 79 68 71 Respiratory Rate 20 20 Blood Pressure 150/89 H 145/89 H Pulse Oximetry 99 100 09/29/17 13:00 09/29/17 14:00 09/29/17 15:00 Temperature Pulse Rate 79 80 93 H Respiratory Rate Blood Pressure Pulse Oximetry 09/29/17 15:50 09/29/17 15:52 09/29/17 17:00 Temperature 98.2 F Pulse Rate 68 93 H 92 H Respiratory Rate 20 Blood Pressure 154/89 H Pulse Oximetry 99 09/29/17 17:51 09/29/17 19:00 09/29/17 20:00 Temperature 98.4 F Pulse Rate 80 98 H 81 Respiratory Rate 18 Blood Pressure 131/60 Pulse Oximetry 99 09/29/17 21:00 09/29/17 22:00 09/29/17 23:00 Temperature Pulse Rate 82 83 82 Respiratory Rate Blood Pressure Pulse Oximetry 09/30/17 00:00 09/30/17 01:00 09/30/17 02:00 Temperature 98.2 F Pulse Rate 75 72 77 Respiratory Rate 20 Blood Pressure 126/65 Pulse Oximetry 98 09/30/17 03:00 09/30/17 04:00 09/30/17 05:00 Temperature 98.0 F Pulse Rate 81 70 63 Respiratory Rate 20 Blood Pressure 111/79 Pulse Oximetry 98 09/30/17 07:28 Temperature 98.6 F Pulse Rate 80 Respiratory Rate 20 Blood Pressure 115/62 Pulse Oximetry 99 Intake & Output 09/29/17 09/30/17 09/30/17 18:59 06:59 18:59 Intake Total 1690 / 1690 240 / 240 Output Total 1000 / 1000 800 / 800 Balance 690 / 690 -560 / -560 Intake: IV 400 / 400 Nitroglycerin Drip Premix 50 mg 150 / 150 In 250 ml @ Per Protocol IV. CONT TITRATE PRN Rx#:[id number] Kengreal Inj 50,000 MCG In NS 250 / 250 Inj 250 ML @ As Directed IV.SIG ONCE ONE Rx#:[id number] Oral 1290 / 1290 240 / 240 Output: Urine 1000 / 1000 800 / 800 Other: Date of Last Bowel Movement 09/25/17 09/28/17 GENERAL: SKIN: Warm and dry. HEAD: Atraumatic. Normocephalic. NECK: Trachea midline. No JVD. CARDIOVASCULAR: Regular rate and rhythm. RESPIRATORY: No accessory muscle use. Clear to auscultation. Breath sounds equal bilaterally. GASTROINTESTINAL: Abdomen soft, non-tender, nondistended. MUSCULOSKELETAL: Extremities without clubbing, cyanosis, or edema. No obvious deformities. NEUROLOGICAL: Awake and alert. No obvious cranial nerve deficits. Motor grossly within normal limits. Five out of 5 muscle strength in the arms and legs. Normal speech. PSYCHIATRIC: Appropriate mood and affect; insight and judgment normal. Assessment and Plan - Plan 46 yo AAM tobacco smoker with HTN who was recently admitted for chest pain and had a cardiac catheterization on 09/25/17 showing normal coronary arteries who presented again last evening with reoccurrence of chest pain. Was noted to have significantly elevated troponin and underwent repeat LHC yesterday for NSTEMI. Found with IVUS to have 75% mid-LAD stenosis and underwent primary PCI with HANSA and BMS for small stent dissection flap vs severe vasospasm not relieved with intracoronary NTG. NSTEMI- s/p PCI mLAD 09/29/17 continue PDF19og daily and Brilinta 90mg bid x 1 year uninterrupted. Atorvastatin, Carvedilol, lisinopril, amlodipine, Imdur. Will need RXs upon d/ c. Ok for d/c later today. HTN- SBP improving.
[2017-09-30] MEDS: Acetaminophen 325 MG Tablet PO PRN (10:33)
[2017-09-30] MEDS ORDERED: Iohexol 350 MG/ML 50 ML Vial (for Cath Lab) IVCONTRAST ONE (13:16)
[2017-09-30] MEDS ORDERED: Iohexol 350 MG/ML 100 ML Vial (for Cath Lab) IVCONTRAST ONE (13:16)
--- NOTE | 2017-09-30 15:24 | ECG ---
Date Performed: 09/29/2017 Time Performed: 12:37:50 PTAGE: 46 years EKG: Sinus rhythm Leftward axis Extensive T wave changes may be due to myocardial ischemia Abnormal ECG PREVIOUS TRACING : 09/29/2017 04.01 DOCTOR: Flash Allison Interpretating Date/Time 09/30/2017 15:23:09
== END 2017-09-30 13:17 | disposition home or self-care (01) ==
LOC: NEPC 21:30 → NEDA 09-29 01:22 → HCPC 09-29 03:45
PROVIDERS: ADMIT Hospitalist; ATTEND Hospitalist
DX: I21.4 Non-ST elevation (NSTEMI) myocardial infarction; Z68.41 Body mass index [BMI] 40.0-44.9, adult; T46.3X5A Adverse effect of coronary vasodilators, initial encounter; E66.9 Obesity, unspecified; I25.10 Atherosclerotic heart disease of native coronary artery without angina pectoris; I10 Essential (primary) hypertension; G44.40 Drug-induced headache, not elsewhere classified, not intractable; F17.200 Nicotine dependence, unspecified, uncomplicated; Z82.49 Family history of ischemic heart disease and other diseases of the circulatory system; E78.2 Mixed hyperlipidemia